=== PATIENT | female | born 1995 | race Caucasian/White ===

== ENCOUNTER → 2016-12-12 | Outpatient (CLI) | payer OTHER ==
[2016-12-12 16:31] LABS: CH 29.1; CHCM 34.2; HCT 41.1 % (34.0-46.0); HDW 2.29; HGB 13.7 gm/dL (11.4-16.0); MCH 28.4 pg (25.0-35.0); MCHC 33.2 g/dL (31.0-37.0); MCV 85.3 fL (80.0-100.0); Mean Platelet Volume 6.6; RBC 4.81 m/uL (3.80-5.40); RDW 12.7 % (11.5-15.5); WBC 13.4 k/uL (4.0-11.0)
[2016-12-12 16:46] LABS: Glucose 92 mg/dL (74-99); Non-African American GFR(MDRD) >60 (>60 ml/min/1.73 sqM)
[2016-12-12 17:16] LABS: Hepatitis B Surface Ag Index 0.08
[2016-12-13 06:48] LABS: HIV-1/HIV-2 Ab Screen NONREAC (NON REAC)
--- NOTE | 2016-12-13 08:45 | US ---
EXAMINATION TYPE: US OB <= 14 wk fetus, first trimester DATE OF EXAM: 12/12/2016 4:07 PM COMPARISON: NONE CLINICAL HISTORY: Confirm Dates and Viability. Positive beta-hCG test with pain EXAM PERFORMED: Transabdominal (TA) pelvic ultrasound EXAM MEASUREMENTS: GESTATIONAL AGE / DATING Physician Established: not established Dates by LMP: (14 weeks/4 days) EDC: 06/08/2017 Dates by First Scan: AUDITING CONTROL CLERK Dates by Current Scan for: (13 weeks/0 days) EDC: 06/19/2017 MATERNAL ANATOMY Uterus: 11.2 x 8.3 x 8.2cm Right Ovary: 2.6 x 1.7 x 2.3cm Left Ovary: 2.6 x 2.1 x 1.8cm Post CDS / Adnexa: wnl Presence of free fluid: no Presence of corpus luteal cyst: not seen Presence of subchorionic bleed: no GESTATION / SURVEY CRL: 6.6cm (13 weeks/0 days) MSD: wnl Yolk Sac (normal less than 6mm): not seen Heart Rate: 150 bpm Rhythm: Normal IUP: Viable IUP Date of LMP: 09/01/2016 Beta HcG (if available): not available TECHNOLOGIST IMPRESSION: Viable 13w0d IUP seen and appears wnl Single live intrauterine gestation is seen as gestational sac and pole are identified. Yolk sac is not clearly evident. heart tones are regular measure 150 bpm which is within normal limits. No free fluid is seen in pelvic cul-de-sac. Both ovaries are present. No suspicious solid or cystic extraovarian adnexal masses are seen. IMPRESSION: Single live intrauterine gestation is confirmed, mean crown-rump length is 6.6 cm corresponding to a 13 week 0 day old fetus.
== END | disposition home or self-care (01) ==
LOC: RADUSWWP 15:49
PROVIDERS: ATTEND Obstetrics & Gynecology
DX: Z36 Encounter for antenatal screening of mother (principal); O26.811 Pregnancy related exhaustion and fatigue, first trimester; Z3A.13 13 weeks gestation of pregnancy
CPT/HCPCS: 36415; 76801; 82565; 82947; 85027; 86762; 86780; 86850; 86900; 86901; 87340; 87389

== ENCOUNTER 2016-12-13 17:12 | Emergency (ER) | payer OTHER ==
[2016-12-13 17:40] VITALS: BP 129/77; PULSE 97; RESP 16; TEMP 98.7
[2016-12-13] MEDS ORDERED: SODIUM CHLORIDE 0.9% 1,000 ML IV STA (17:49)
[2016-12-13] MEDS ORDERED: .ACETAMINOPHEN IV (PEDS) 1,000 MG in EMPTY BAG 1 BAG IVPB STA (17:49)
--- NOTE | 2016-12-13 17:54 | ED ---
Abdominal Pain HPI - General Chief Complaint: Abdominal Pain Stated Complaint: Abdominal Pain, 12 weeks pgt Time Seen by Provider: 12/13/16 17:45 Source: patient, RN notes reviewed Mode of arrival: ambulatory Limitations: no limitations - History of Present Illness Initial Comments: 21-year-old female presents to emergency room chief complaint of abdominal pain in . Patient states she is about 13 weeks . Patient states she's had some epigastric abdominal pain with this. Patient states she has been to the ANSWERING SERVICE AGENT she has an ultrasound things went well. Patient states she is a . Patient states his pain just felt different so she thought that she should be seen. Patient denies any vaginal drainage or discharge. Patient denies any vaginal bleeding. Patient denies any nausea or vomiting with this. Patient denies any fever chills. Patient states she was concerned due to being in the belly pain so she thought that she should be seen. Patient denies any recent fever, chills, shortness of breath, chest pain, back pain, nausea vomiting, numbness or tingling, dysuria or hematuria, constipation or diarrhea, headaches or visual changes, or any other current symptoms. - Related Data Home Medications Medication Instructions Recorded Confirmed Pnv with Ca,No.72/Iron/FA 1 tab PO DAILY 11/04/16 12/13/16 [ Plus Tablet] Allergies Allergy/AdvReac Type Severity Reaction Status Date / Time No Known Allergies Allergy Verified 12/13/16 18:00 Review of Systems ROS Statement: Those systems with pertinent positive or pertinent negative responses have been documented in the HPI. ROS Other: All systems not noted in ROS Statement are negative. Past Medical History Past Medical History: No Reported History Additional Past Medical History / Comment(s): headaches History of Any Multi-Drug Resistant Organisms: None Reported Past Surgical History: No Surgical Hx Reported Past Psychological History: Depression Smoking Status: Never smoker Past Alcohol Use History: None Reported Past Drug Use History: None Reported General Exam - General Exam Comments Initial Comments: General: The patient is awake and alert, in no distress, and does not appear acutely ill. Eye: Pupils are equal, round. Ears, nose, mouth and throat: There are moist mucous membranes. Neck: The neck is supple, there is no tenderness. Cardiovascular: There is a regular rate and rhythm. No murmur, rub or gallop is appreciated. Respiratory: Lungs are clear to auscultation, respirations are non-labored, breath sounds are equal. No wheezes, stridor, rales, or rhonchi. Gastrointestinal: Soft, non-distended, non-tender abdomen without masses or organomegaly noted. There is no rebound or guarding present. No CVA tenderness. Bowel sounds are unremarkable. Back: There is no tenderness to palpation in the midline. There is no obvious deformity. No rashes noted. Musculoskeletal: Normal ROM, no tenderness, There is no pedal edema. There is no calf tenderness or swelling. Sensation intact. Pulses equal bilaterally 2+. Neurological: CN II-XII intact, There are no obvious motor or sensory deficits. Coordination appears grossly intact. Speech is normal. Skin: Skin is warm and dry and no rashes or lesions are noted. Psychiatric: Cooperative, appropriate mood & affect, normal judgment. Limitations: no limitations Course Vital Signs 12/13/16 17:37 Temperature 98.7 F Pulse Rate 97 Respiratory 16 Rate Blood Pressure 129/77 O2 Sat by Pulse 97 Oximetry Medical Decision Making - Medical Decision Making 21-year-old female presents emergency Department chief complaint abdominal pain and . At this time patient's laboratory is reviewed and negative patient's ultrasound was performed yesterday was reviewed and shows no acute process. We discussed the patient does not seem to have any acute problem for the pain discussed continuing watching him follow-up return parameters. Patient stated that she understood all questions have been answered. They will be discharged home. - Lab Data Result diagrams: 12/13/16 18:30 12/13/16 18:30 Lab Results 12/13/16 12/13/16 12/13/16 Range/Units 18:25 18:25 18:30 WBC 13.5 H (4.0-11.0) k/uL RBC 4.85 (3.80-5.40) m/uL Hgb 13.7 (11.4-16.0) gm/dL Hct 41.0 (34.0-46.0) % MCV 84.6 (80.0-100.0) fL MCH 28.1 (25.0-35.0) pg MCHC 33.3 (31.0-37.0) g/dL RDW 12.7 (11.5-15.5) % Plt Count 285 (150-450) k/uL Neutrophils % 66 % Lymphocytes % 26 % Monocytes % 6 % Eosinophils % 1 % Basophils % 0 % Neutrophils # 8.8 H (1.3-7.7) k/uL Lymphocytes # 3.4 (1.0-4.8) k/uL Monocytes # 0.8 (0-1.0) k/uL Eosinophils # 0.2 (0-0.7) k/uL Basophils # 0.1 (0-0.2) k/uL Sodium (137-145) mmol/L Potassium (3.5-5.1) mmol/L Chloride (98-107) mmol/L Carbon Dioxide (22-30) mmol/L Anion Gap mmol/L BUN (7-17) mg/dL Creatinine (0.52-1.04) mg/dL Est GFR (MDRD) Af Amer (>60 ml/min/1.73 sqM) Est GFR (MDRD) Non-Af (>60 ml/min/1.73 sqM) Glucose (74-99) mg/dL Calcium (8.4-10.2) mg/dL Total Bilirubin (0.2-1.3) mg/dL AST (14-36) U/L ALT (9-52) U/L Alkaline Phosphatase (38-126) U/L Total Protein (6.3-8.2) g/dL Albumin (3.5-5.0) g/dL Urine Color Yellow Urine Appearance Cloudy H (Clear) Urine pH 5.5 (5.0-8.0) Ur Specific [place] 1.019 (1.001-1.035) Urine Protein Negative (Negative) Urine Glucose (UA) Negative (Negative) Urine Ketones Negative (Negative) Urine Blood Negative (Negative) Urine Nitrate Negative (Negative) Urine Bilirubin Negative (Negative) Urine Urobilinogen 2.0 (<2.0) mg/dL Ur Leukocyte Esterase Large H (Negative) Urine RBC 13 H (0-5) /hpf Urine WBC 13 H (0-5) /hpf Ur Squamous Epith Cells 10 H (0-4) /hpf Urine Mucus Rare H (None) /hpf Urine HCG, Qual Detected (Not Detectd) 12/13/16 Range/Units 18:30 WBC (4.0-11.0) k/uL RBC (3.80-5.40) m/uL Hgb (11.4-16.0) gm/dL Hct (34.0-46.0) % MCV (80.0-100.0) fL MCH (25.0-35.0) pg MCHC (31.0-37.0) g/dL RDW (11.5-15.5) % Plt Count (150-450) k/uL Neutrophils % % Lymphocytes % % Monocytes % % Eosinophils % % Basophils % % Neutrophils # (1.3-7.7) k/uL Lymphocytes # (1.0-4.8) k/uL Monocytes # (0-1.0) k/uL Eosinophils # (0-0.7) k/uL Basophils # (0-0.2) k/uL Sodium 138 (137-145) mmol/L Potassium 4.4 (3.5-5.1) mmol/L Chloride 108 H (98-107) mmol/L Carbon Dioxide 17 L (22-30) mmol/L Anion Gap 13 mmol/L BUN 7 (7-17) mg/dL Creatinine 0.50 L (0.52-1.04) mg/dL Est GFR (MDRD) Af Amer >60 (>60 ml/min/1.73 sqM) Est GFR (MDRD) Non-Af >60 (>60 ml/min/1.73 sqM) Glucose 108 H (74-99) mg/dL Calcium 9.3 (8.4-10.2) mg/dL Total Bilirubin 0.6 (0.2-1.3) mg/dL AST 38 H (14-36) U/L ALT 38 (9-52) U/L Alkaline Phosphatase 62 (38-126) U/L Total Protein 6.6 (6.3-8.2) g/dL Albumin 3.8 (3.5-5.0) g/dL Urine Color Urine Appearance (Clear) Urine pH (5.0-8.0) Ur Specific [place] (1.001-1.035) Urine Protein (Negative) Urine Glucose (UA) (Negative) Urine Ketones (Negative) Urine Blood (Negative) Urine Nitrate (Negative) Urine Bilirubin (Negative) Urine Urobilinogen (<2.0) mg/dL Ur Leukocyte Esterase (Negative) Urine RBC (0-5) /hpf Urine WBC (0-5) /hpf Ur Squamous Epith Cells (0-4) /hpf Urine Mucus (None) /hpf Urine HCG, Qual (Not Detectd) Disposition Clinical Impression: Abdominal pain affecting Disposition: HOME SELF-CARE Condition: Stable Instructions: Abdominal Pain in (ED) Additional Instructions: Please use medication as discussed. Please follow up with family doctor if symptoms have not improved over the next two days. Please return to the emergency room if your symptoms increase or worsen or for any other concerns. Referrals: Victoriano Ramírez DO [Primary Care Provider] - 1-2 days Time of Disposition: 19:20
[2016-12-13 18:43] LABS: Basophils # (A) 0.1 k/uL (0-0.2); Basophils % (A) 0 %; CH 29.4; CHCM 34.9; Eosinophils # (A) 0.2 k/uL (0-0.7); Eosinophils % (A) 1 %; HDW 2.35; HGB 13.7 gm/dL (11.4-16.0); Luc # (Auto) 0.18; Luc % (Auto) 1; Lymphocytes # (A) 3.4 k/uL (1.0-4.8); Lymphocytes % (A) 26 %; MCH 28.1 pg (25.0-35.0); MCHC 33.3 g/dL (31.0-37.0); MCV 84.6 fL (80.0-100.0); Monocytes # (A) 0.8 k/uL (0-1.0); Monocytes % (A) 6 %; Neutrophils # (A) 8.8 k/uL (1.3-7.7); Neutrophils % (A) 66 %; RBC 4.85 m/uL (3.80-5.40); RDW 12.7 % (11.5-15.5); WBC 13.5 k/uL (4.0-11.0); WBC (Perox) 12.99
[2016-12-13 18:51] LABS: Appearance,Urine Cloudy (Clear); Bilirubin,Urine Negative (Negative); Glucose,Urine (UA) Negative (Negative); Ketones,Urine Negative (Negative); Leukocyte Esterase,Urine Large (Negative); Mucus,Urine Rare /hpf; Nitrite,Urine Negative (Negative); PH, Urine 5.5 (5.0-8.0); Particle Count 14804; Protein,Urine Negative (Negative); RBC,Urine 13 /hpf (0-5); Specific Gravity,Urine 1.019 (1.001-1.035); Squamous Epithelial Cell,Urine 10 /hpf (0-4); UA Billing (MACRO vs. MICRO) MICRO; WBC,Urine 13 /hpf (0-5)
[2016-12-13 18:54] LABS: ALT 38 U/L (9-52); AST 38 U/L (14-36); Alkaline Phosphatase 62 U/L (38-126); Anion Gap 13 mmol/L; Blood Urea Nitrogen 7 mg/dL (7-17); Calcium 9.3 mg/dL (8.4-10.2); Carbon Dioxide 17 mmol/L (22-30); Chloride 108 mmol/L (98-107); Glucose 108 mg/dL (74-99); Non-African American GFR(MDRD) >60 (>60 ml/min/1.73 sqM); Sodium 138 mmol/L (137-145); Total Bilirubin 0.6 mg/dL (0.2-1.3); Total Protein 6.6 g/dL (6.3-8.2)
[2016-12-13 19:13] LABS: Potassium 4.4 mmol/L (3.5-5.1)
[2016-12-13] MEDS ORDERED: ACETAMINOPHEN TAB 500 MG TAB PO STA (19:23)
== END 2016-12-13 19:37 | disposition home or self-care (01) ==
LOC: EC 17:12
DX: O26.891 Other specified pregnancy related conditions, first trimester (principal); R10.9 Unspecified abdominal pain; Z3A.13 13 weeks gestation of pregnancy
CPT/HCPCS: 36415; 80053; 81001; 81025; 85025; 87086; 99284

== ENCOUNTER → 2017-02-01 | Outpatient (CLI) | payer OTHER ==
--- NOTE | 2017-01-19 06:05 | US ---
EXAMINATION TYPE: US OB anatomy transabd second trimester DATE OF EXAM: 01/18/2017 4:32 PM COMPARISON: US on PACS first trimester December 12, 2016. HISTORY: LGA, G1 TECHNIQUE: Transabdominal (TA) EXAM MEASUREMENTS: GESTATIONAL AGE / DATING Physician Established: (18 weeks/2 days) EDC: 06/19/2017 Dates by LMP: (19 weeks/6 days) EDC: 06/08/2017 Dates by First Scan: (18 weeks/2 days) EDC: 06/19/2017 Dates by Current Scan for: (18 weeks/0 days) EDC: 06/21/2017 SURVEY IUP: Single PLACENTA: fundal anterior PREVIA: No previa DMITRY: 13.4 cm Normal CERVICAL LENGTH (transabdominal: norm > 3.0cm): 3.2 cm BIOMETRY PRESENTATION: Vertex LIE: Oblique BPD: 4.0 cm 18 weeks / 1 day HC: 15.0 cm 18 weeks / 1 day AC: 12.1 cm 17 weeks / 6 days FL: 2.7 cm 18 weeks / 1 day ESTIMATED WEIGHT IN GRAMS: 218.8 grams ESTIMATED WEIGHT IN LBS/OZ: 0 lbs. 8 oz. WEIGHT PERCENTAGE BASED ON ESTABLISHED DATE: 28.0 % HC/AC: 1.24 normal FL/AC: 22.03 normal HEART RATE: 157 bpm RHYTHM: Normal ANATOMY SEEN (within normal limits): * Lateral Vent (< 1 cm) 0.6 cm * Cisterna Magna (< 1.1 cm) 0.2 cm * Nuchal Fold (< 0.6 cm) 0.3 cm * Cerebellum (varies with age) 1.9 cm Choroid Plexus (bilateral) Midline Falx Cavus Septi Pellucidi Stomach Situs Diaphragm Kidneys (bilateral) Bladder Cord Insert Three Vessel Cord Arms (bilateral) Legs (bilateral) ANATOMY SEEN (does not appear within normal limits): ANATOMY NOT SEEN: due to lie Four Chamber Heart Outflow tracts: LVOT/RVOT Nose / Lips as < 20 weeks gestation for optimal scanning Longitudinal Spine Transverse Spine TECHNOLOGIST IMPRESSION: Single, live, IUP,18 weeks/0 days, EDC: 06/21/2017, HR 157bppm; patient is scheduled to return for OB Callback on 02/01/2017 at 3:40pm for remaining structures not well seen by US today. Single live intrauterine gestation is redemonstrated. Normal cephalad presentation to fetus is curren tly seen. There is no ultrasound evidence for placenta previa. Amniotic fluid index is within normal limits. biometry measurements are congruent and within normal limits. Detailed anatomical surve y shows no suspicious abnormality during real-time scanning but several structures as noted above are suboptimally seen. Still images saved show no suspicious abnormality. IMPRESSION: As above, suboptimal anatomical survey noted. Callback will be performed at later date.
--- NOTE | 2017-02-01 16:44 | US ---
EXAMINATION TYPE: US OB Call Back DATE OF EXAM: 02/01/2017 4:22 PM COMPARISON: US in PACS CLINICAL HISTORY: Large for Dates [id number]. GESTATIONAL AGE / DATING Dates by Initial Survey Scan: (20 weeks/0 days) EDC: 06/21/2017 HEART RATE: 147 bpm RHYTHM: Normal ANATOMY SEEN (second anatomic survey look): Four Chamber Heart: Outflow tracts:? LVOT/RVOT Nose / Lips: Transverse Spine: ANATOMY STILL NOT SEEN (requiring an additional callback appt): Longitudinal Spine: Fetus Spine Down Pt coming for 2nd call back on 02/16/17 at 1500 IMPRESSION: MORPHOLOGIC EXAMINATION IS STILL LIMITED. THE PATIENT WILL RETURN ONCE AGAIN.
== END | disposition home or self-care (01) ==
LOC: RADUSWWP 01-18 15:39
PROVIDERS: ATTEND Obstetrics & Gynecology
DX: O36.62X0 Maternal care for excessive fetal growth, second trimester, not applicable or unspecified (principal); Z3A.18 18 weeks gestation of pregnancy
CPT/HCPCS: 76811

== ENCOUNTER → 2017-02-16 | Outpatient (CLI) | payer OTHER ==
--- NOTE | 2017-02-16 15:17 | US ---
EXAMINATION TYPE: US OB Call Back DATE OF EXAM: 02/16/2017 3:05 PM COMPARISON: US in PACS CLINICAL HISTORY: OB CallBack. OB call back for spine images GESTATIONAL AGE / DATING Dates by Initial Survey Scan: (22 weeks/1 days) EDC: 06/21/2017 HEART RATE: 153 bpm RHYTHM: Normal ANATOMY SEEN (second anatomic survey look): Longitudinal Spine: wnl Transverse Spine: wnl Spine visualized and appeared wnl IMPRESSION: Visualized spine appears to be within normal limits.
== END | disposition home or self-care (01) ==
LOC: RADUSWWP 14:51
PROVIDERS: ATTEND Obstetrics & Gynecology
DX: Z03.74 Encounter for suspected problem with fetal growth ruled out (principal)

== ENCOUNTER → 2017-03-23 | Outpatient (CLI) | payer OTHER ==
[2017-03-23 10:29] LABS: CH 29.3; CHCM 33.9; HCT 37.5 % (34.0-46.0); HDW 2.74; HGB 12.7 gm/dL (11.4-16.0); MCH 29.5 pg (25.0-35.0); MCHC 33.9 g/dL (31.0-37.0); MCV 87.1 fL (80.0-100.0); Mean Platelet Volume 6.7; RBC 4.31 m/uL (3.80-5.40); RDW 12.9 % (11.5-15.5); WBC 13.9 k/uL (3.8-10.6)
== END ==
LOC: LABWHC1 08:55
PROVIDERS: ATTEND Obstetrics & Gynecology
DX: Z34.02 Encounter for supervision of normal first pregnancy, second trimester (principal); Z3A.00 Weeks of gestation of pregnancy not specified
CPT/HCPCS: 36415; 82950; 85027

== ENCOUNTER 2017-04-04 16:01 | Outpatient (CLI) | payer OTHER ==
[2017-04-04 16:55] VITALS: BP 119/75; PULSE 106; RESP 16; TEMP 96.4
== END 2017-04-04 16:52 | disposition home or self-care (01) ==
LOC: FBPOP 16:01
PROVIDERS: ATTEND Obstetrics & Gynecology
DX: O36.8130 Decreased fetal movements, third trimester, not applicable or unspecified (principal); Z3A.29 29 weeks gestation of pregnancy
CPT/HCPCS: 59025; G0463; 99213

== ENCOUNTER 2017-06-07 06:00 | Inpatient (IN) | payer OTHER ==
[2017-06-07] MEDS ORDERED: OXYTOCIN 10 UNIT/ML 1 ML VIAL IM PRN (06:10)
[2017-06-07] MEDS ORDERED: OXYTOCIN 20 UNITS/1000 ML NS 1,000 ML IV SCH ×2 (06:10→19:45)
[2017-06-07] MEDS ORDERED: CARBOPROST TROMETHAMINE 250 MCG/ML 1 ML AMP IM PRN (06:10)
[2017-06-07] MEDS ORDERED: METHYLERGONOVINE 0.2 MG/ML 1 ML AMP IM PRN (06:10)
[2017-06-07] MEDS ORDERED: LIDOCAINE 1% (PF) 10 MG/ML (30 ML SDV) SQ PRN (06:10)
[2017-06-07] MEDS ORDERED: TERBUTALINE 1 MG/ML VIAL SQ PRN (06:10)
[2017-06-07 06:24] LABS: Basophils # (A) 0.1 k/uL (0-0.2); Basophils % (A) 0 %; CH 27.9; CHCM 33.5; Eosinophils # (A) 0.1 k/uL (0-0.7); Eosinophils % (A) 1 %; HCT 36.5 % (34.0-46.0); HDW 2.84; Luc # (Auto) 0.37; Luc % (Auto) 2; Lymphocytes # (A) 3.9 k/uL (1.0-4.8); Lymphocytes % (A) 25 %; MCH 27.5 pg (25.0-35.0); MCHC 32.8 g/dL (31.0-37.0); MCV 83.9 fL (80.0-100.0); Mean Platelet Volume 7.3; Monocytes # (A) 0.9 k/uL (0-1.0); Monocytes % (A) 5 %; Neutrophils # (A) 10.3 k/uL (1.3-7.7); Neutrophils % (A) 66 %; RBC 4.35 m/uL (3.80-5.40); WBC 15.6 k/uL (3.8-10.6); WBC (Perox) 16.05
[2017-06-07 06:28] VITALS: BMI 34.7
[2017-06-07] MEDS: LACTATED RINGERS 1,000 ML IV SCH ×2 (06:32→18:14)
--- NOTE | 2017-06-07 07:28 | P.HPOB ---
History of Present Illness H&P Date: 06/07/17 Chief Complaint: Induction of labor 22 year old presents at 39 weeks 1 day for induction of labor. Her cervix is 1-2/70/-2 and she is not arelis. heart tones are 135-140 with moderate variability and reactive. Review of Systems All systems: negative Constitutional: Denies chills, Denies fever Eyes: denies blurred vision, denies pain Ears, nose, mouth and throat: Denies headache, Denies sore throat Cardiovascular: Denies chest pain, Denies shortness of breath Respiratory: Denies cough Gastrointestinal: Denies abdominal pain, Denies diarrhea, Denies nausea, Denies vomiting Genitourinary: Denies dysuria, Denies hematuria Musculoskeletal: Denies myalgias Integumentary: Denies pruritus, Denies rash Neurological: Denies numbness, Denies weakness Psychiatric: Denies anxiety, Denies depression Endocrine: Denies fatigue, Denies weight change Past Medical History Past Medical History: No Reported History Additional Past Medical History / Comment(s): headaches. Obstetric history: This is her first and she has had care with me since 12 weeks gestation. A+, abs neg, Rub Imm, Treponemal neg, HIV NR, Hep B neg. nromal 1hr GTT, GBS neg. History of Any Multi-Drug Resistant Organisms: None Reported Past Surgical History: No Surgical Hx Reported Past Anesthesia/Blood Transfusion Reactions: No Reported Reaction Past Psychological History: Depression Smoking Status: Never smoker Past Alcohol Use History: None Reported Past Drug Use History: None Reported - Past Family History Mother Family Medical History: No Reported History Medications and Allergies Home Medications Medication Instructions Recorded Confirmed Type Pnv,Calcium 72/Iron/Folic Acid 1 tab PO DAILY 11/04/16 06/07/17 History [ Plus Tablet] Allergies Allergy/AdvReac Type Severity Reaction Status Date / Time No Known Allergies Allergy Verified 06/07/17 06:09 Exam Osteopathic Statement: *. No significant issues noted on an osteopathic structural exam other than those noted in the History and Physical/Consult. - Vital Signs Vital signs: Vital Signs Temp Pulse Resp BP 06/07/17 06:15 98.2 F 109 H 16 143/77 Intake and Output 06/06/17 06/07/17 06/07/17 22:59 06:59 14:59 Other: Weight 103.419 kg Heart: Regular rate and rhythm Lungs: Clear to auscultation bilaterally Abdomen: Soft, nontender Extremities: Negative Homans sign Results Result Diagrams: 06/07/17 06:15 Abnormal Lab Results - Last 24 Hours (Table) 06/07/17 Range/Units 06:15 WBC 15.6 H (3.8-10.6) k/uL Neutrophils # 10.3 H (1.3-7.7) k/uL Assessment and Plan (1) Normal labor Status: Acute Plan: 1. Admit to family place 2. Amniotomy and Pitocin for induction of labor 3. Anticipate normal vaginal delivery
[2017-06-07] MEDS ORDERED: BENZOCAINE/MENTHOL SPRAY 1 GM/SPRAY AEROSOL TOPICAL PRN (19:32)
[2017-06-07] MEDS ORDERED: HYDROCORTISONE 2.5% RECTAL CREAM 30 GM TUBE RECTAL PRN (19:32)
[2017-06-07] MEDS ORDERED: diphenhydrAMINE 50 MG CAP PO PRN (19:32)
[2017-06-07] MEDS ORDERED: Acetaminophen-Codeine 300-30mg TAB PO PRN ×2 (19:32)
[2017-06-07] MEDS ORDERED: ACETAMINOPHEN TAB 325 MG TAB PO PRN (19:32)
[2017-06-07] MEDS ORDERED: diphenhydrAMINE 25 MG CAP PO PRN (19:32)
[2017-06-07] MEDS ORDERED: diphenhydrAMINE 50 MG/ML 1 ML VIAL IVP PRN ×2 (19:32)
[2017-06-07] MEDS ORDERED: SIMETHICONE 80 MG CHEWABLE PO PRN (19:32)
[2017-06-07] MEDS ORDERED: WITCH HAZEL 1 EACH MED..PAD TOPICAL PRN (19:32)
[2017-06-07] MEDS ORDERED: LANOLIN CREAM 5 GM TUBE TOPICAL PRN (19:32)
[2017-06-07] MEDS ORDERED: ZOLPIDEM 5 MG TAB PO PRN (19:32)
--- NOTE | 2017-06-07 19:36 | P.PROBDLV ---
Vaginal Delivery Note - . Vaginal Delivery Note: 22-year-old presented at 39 weeks and 1 day for induction of labor. Her cervix was 1-2 cm dilated, 70% effaced, -2 station. She was not arelis. heart tones 135-140 with moderate variability and reactive. Pitocin was started and amniotomy was performed at 7:09 AM, clear fluid noted. Patient progressed to 5 cm and did get an epidural around 1 PM. She progressed about 8 cm and got an uncontrollable urge to push. She pushed through and did become complete. She delivered a viable female over midline episiotomy under epidural anesthesia at 1908. Head delivered OA, nuchal cord 1 easily reduced, anterior shoulder which was the left shoulder delivered gentle downward traction followed by posterior shoulder and rest of body. Nose and mouth bulb suctioned, cord clamped and cut, infant placed on mother's abdomen. Apgars 8, 8 , weight 6 pounds. Placenta delivered spontaneously, intact with three-vessel cord at 1911. Vagina, cervix, and perineum were inspected. Second-degree midline episiotomy was repaired with 2-0, and 3-0 Vicryl. Estimated blood loss 150 mL. Mother and baby in stable condition.
[2017-06-07] MEDS: IBUPROFEN 600 MG TAB PO PRN (19:49)
[2017-06-07] MEDS: SENNOSIDES-DOCUSATE SODIUM 1 EACH TAB PO SCH (19:50)
--- NOTE | 2017-06-08 07:04 | P.DS ---
Providers Date of admission: 06/07/17 06:00 Expected date of discharge: 06/08/17 Attending physician: Eleanor Barr Primary care physician: Victoriano Ramírez - Discharge Diagnosis(es) (1) Normal labor Current Visit: Yes Status: Resolved (2) Normal vaginal delivery Current Visit: Yes Status: Acute Hospital Course: PAtient presented for induction of labor. She underwent a normal vaginal delivery and had an uncomplicated post course. She will be discharged home PPD #1 in stable condition to follow up with me in 6 weeks. Plan - Discharge Summary New Discharge Prescriptions: New Ibuprofen [Motrin] 600 mg PO Q6HR PRN #30 tab PRN Reason: Mild Pain Or Fever >= 100.5 No Action Pnv,Calcium 72/Iron/Folic Acid [ Plus Tablet] 1 tab PO DAILY Discharge Medication List Pnv,Calcium 72/Iron/Folic Acid [ Plus Tablet] 1 tab PO DAILY 11/04/16 [ History] Ibuprofen [Motrin] 600 mg PO Q6HR PRN #30 tab 06/08/17 [Rx] Follow up Appointment(s)/Referral(s): Eleanor Barr DO [Doctor of Osteopathic Medicine] - 6 Weeks Discharge Disposition: HOME SELF-CARE
[2017-06-08] MEDS: IBUPROFEN 600 MG TAB PO PRN ×3 (07:30→21:48)
[2017-06-08] MEDS: SENNOSIDES-DOCUSATE SODIUM 1 EACH TAB PO SCH ×2 (07:30→21:49)
[2017-06-08] MEDS: LACTATED RINGERS 1,000 ML IV SCH (20:31)
[2017-06-09 00:18] VITALS: RESP 16
[2017-06-09] MEDS: SENNOSIDES-DOCUSATE SODIUM 1 EACH TAB PO SCH (07:27)
[2017-06-09 07:58] VITALS: BP 121/71; PULSE 89; TEMP 98.1
== END 2017-06-09 10:30 | disposition home or self-care (01) | DRG 775 ==
LOC: 4FBP 06:00
PROVIDERS: ADMIT Obstetrics & Gynecology; ATTEND Obstetrics & Gynecology
PROC: 10E0XZZ Delivery of Products of Conception, External Approach (ICD-10-PCS; principal; 2017-06-07)
PROC: 0W8NXZZ Division of Female Perineum, External Approach (ICD-10-PCS; principal; 2017-06-07)
PROC: 3E0R3CZ (ICD-10-PCS; principal; 2017-06-07)
PROC: 00HU33Z Insertion of Infusion Device into Spinal Canal, Percutaneous Approach (ICD-10-PCS; principal; 2017-06-07)
PROC: 3E033VJ Introduction of Other Hormone into Peripheral Vein, Percutaneous Approach (ICD-10-PCS; principal; 2017-06-07)
PROC: 10907ZC Drainage of Amniotic Fluid, Therapeutic from Products of Conception, Via Natural or Artificial Opening (ICD-10-PCS; principal; 2017-06-07)
DX: O69.81X0 Labor and delivery complicated by cord around neck, without compression, not applicable or unspecified (principal); Z37.0 Single live birth; Z3A.39 39 weeks gestation of pregnancy
CPT/HCPCS: 85025; 88307

== ENCOUNTER 2017-07-22 19:20 | Emergency (ER) | payer OTHER ==
--- NOTE | 2017-07-22 20:23 | ED ---
General Adult HPI - General Chief complaint: Skin/Abscess/Foreign Body Stated complaint: abscess on inner thigh Time Seen by Provider: 07/22/17 20:14 Source: patient, RN notes reviewed Mode of arrival: ambulatory Limitations: no limitations - History of Present Illness Initial comments: 22-year-old female presents with a one-week history of sore on her medial left inner thigh. Patient noted today that the sore turned black on the surface. Pain is present when patient ambulates, rubbing the surface of the lesion. It was having some minimal clear drainage. No fever or chills. Patient's nondiabetic. No steroids. She has no history of abscess in this location. She is not an IV drug user. - Related Data Home Medications Medication Instructions Recorded Confirmed No Known Home Medications [No 07/22/17 07/22/17 Known Home Medications] Allergies Allergy/AdvReac Type Severity Reaction Status Date / Time No Known Allergies Allergy Verified 07/22/17 20:15 Review of Systems ROS Statement: Those systems with pertinent positive or pertinent negative responses have been documented in the HPI. ROS Other: All systems not noted in ROS Statement are negative. Past Medical History Past Medical History: No Reported History Additional Past Medical History / Comment(s): headaches. Obstetric history: This is her first and she has had care with me since 12 weeks gestation. A+, abs neg, Rub Imm, Treponemal neg, HIV NR, Hep B neg. nromal 1hr GTT, GBS neg. History of Any Multi-Drug Resistant Organisms: None Reported Past Surgical History: No Surgical Hx Reported Past Anesthesia/Blood Transfusion Reactions: No Reported Reaction Past Psychological History: Depression Smoking Status: Never smoker Past Alcohol Use History: None Reported Past Drug Use History: None Reported - Past Family History Mother Family Medical History: No Reported History General Exam Limitations: no limitations General appearance: alert, in no apparent distress Head exam: Present: atraumatic, normocephalic Eye exam: Present: normal appearance, PERRL ENT exam: Present: normal exam Neck exam: Present: normal inspection, full ROM. Absent: meningismus Respiratory exam: Absent: respiratory distress Cardiovascular Exam: Present: regular rate GI/Abdominal exam: Absent: soft, distended, tenderness Extremities exam: Present: other (2 cm abrasion on the inner thigh, there is minimal erythema, tach surface is tender from patient's jeans. No fluctuance, no induration, no drainage) Neurological exam: Present: alert, oriented X3 Psychiatric exam: Present: normal affect, normal mood Skin exam: Present: warm, abrasion (Left inner thigh) Course Vital Signs 07/22/17 19:30 Temperature 97.9 F Pulse Rate 89 Respiratory 16 Rate Blood Pressure 127/78 O2 Sat by Pulse 99 Oximetry Medical Decision Making - Medical Decision Making 22-year-old female presenting with 1 week history of abrasion on her inner thigh. This is at the surface where her thighs rub together with ambulation. Patient had minimal clear drainage, patient noted that there was a black tinge to this lesion today. On examination there does appear to be addendum adherent to the abrasion. This is visible on close inspection. No induration, no significant erythema, no fluctuance. No signs of abscess. Patient is afebrile well-appearing. She is given bacitracin ointment and dressing. She will follow -up as needed. Disposition Clinical Impression: Abrasion Disposition: HOME SELF-CARE Condition: Good Instructions: Abrasion (ED) Referrals: Victoriano Ramírez DO [Primary Care Provider] - 1-2 days Time of Disposition: 20:23
[2017-07-22 20:28] VITALS: BP 129/69; PULSE 78; RESP 18; TEMP 97
== END 2017-07-22 20:28 | disposition home or self-care (01) ==
LOC: EC 19:20
DX: S70.312A Abrasion, left thigh, initial encounter (principal)
CPT/HCPCS: 99282

== ENCOUNTER 2017-07-26 19:34 | Emergency (ER) | payer OTHER ==
[2017-07-26 20:17] VITALS: PULSE 66; RESP 20; TEMP 98.2
[2017-07-26 20:18] VITALS: BP 131/77
--- NOTE | 2017-07-26 20:41 | ED ---
Skin/Abscess/FB HPI - General Chief complaint: Skin/Abscess/Foreign Body Stated complaint: Wound Care Time Seen by Provider: 07/26/17 20:22 Source: patient, RN notes reviewed Mode of arrival: ambulatory Limitations: no limitations - History of Present Illness Initial comments: 22-year-old female presents emergency Department chief complaint of skin rash infection. Patient states she seen a few days ago for some redness states it got worse. Patient states she is strongly redness and some drainage. Patient denies any fever or chills. She states it is diffuse and symmetric patient in no prior skin infections including MRSA VRE. Patient denies any other than her legs. Patient states that she has changed her razor several times. Patient states that she has been keeping them clean with soap and water. - Related Data Previous Rx's Medication Instructions Recorded Mupirocin 2% Oint [Bactroban 2% 1 applic TOPICAL TID #22 gm 07/26/17 Oint] Sulfamethox-Tmp 800-160Mg [Bactrim 1 each PO Q12HR #20 tab 07/26/17 Ds] Allergies Allergy/AdvReac Type Severity Reaction Status Date / Time No Known Allergies Allergy Verified 07/26/17 20:17 Review of Systems ROS Statement: Those systems with pertinent positive or pertinent negative responses have been documented in the HPI. ROS Other: All systems not noted in ROS Statement are negative. Past Medical History Past Medical History: No Reported History Additional Past Medical History / Comment(s): headaches. Obstetric history: This is her first and she has had care with me since 12 weeks gestation. A+, abs neg, Rub Imm, Treponemal neg, HIV NR, Hep B neg. nromal 1hr GTT, GBS neg. History of Any Multi-Drug Resistant Organisms: None Reported Past Surgical History: No Surgical Hx Reported Past Anesthesia/Blood Transfusion Reactions: No Reported Reaction Past Psychological History: Depression Smoking Status: Never smoker Past Alcohol Use History: None Reported Past Drug Use History: None Reported - Past Family History Mother Family Medical History: No Reported History General Exam Limitations: no limitations General appearance: alert, in no apparent distress Head exam: Present: atraumatic, normocephalic, normal inspection Respiratory exam: Present: normal lung sounds bilaterally. Absent: respiratory distress, wheezes, rales, rhonchi, stridor Cardiovascular Exam: Present: regular rate, normal rhythm, normal heart sounds. Absent: systolic murmur, diastolic murmur, rubs, gallop, clicks Skin exam: Present: warm, dry, rash (Erythematous sore on the left calf, right and left thigh region there is mild surrounding erythema) Course Vital Signs 07/26/17 07/26/17 20:15 20:16 Temperature 98.2 F Pulse Rate 66 Respiratory 20 Rate Blood Pressure 131/77 O2 Sat by Pulse 99 Oximetry Medical Decision Making - Medical Decision Making 22-year-old female presented for open sores and rash. Patient appears to have some cellulitis to the open wound. I we'll place patient on Bactroban and Bactrim. Patient will follow with PCP and 48 hours return parameters were discussed. Disposition Clinical Impression: Open leg wound, Cellulitis Disposition: HOME SELF-CARE Condition: Stable Instructions: Cellulitis (ED) Additional Instructions: Please return to the Emergency Department if symptoms worsen or any other concerns. Prescriptions: Mupirocin 2% Oint [Bactroban 2% Oint] 1 applic TOPICAL TID #22 gm Sulfamethox-Tmp 800-160Mg [Bactrim Ds] 1 each PO Q12HR #20 tab Referrals: Victoriano Ramírez DO [Primary Care Provider] - 1-2 days Time of Disposition: 20:41
--- NOTE | 2017-07-31 00:38 | CDI ---
Dear Arian Herron MD: Please do addendum site specificity of cellulitis. Thank you, Danya Wang, Hand Sander. If you have any questions, please contact [employer] Worker at [phone]. [facility]
== END 2017-07-26 20:49 | disposition home or self-care (01) ==
LOC: EC 19:34
DX: L03.115 Cellulitis of right lower limb (principal); L03.116 Cellulitis of left lower limb; S71.101S Unspecified open wound, right thigh, sequela; S81.802S Unspecified open wound, left lower leg, sequela; S71.102S Unspecified open wound, left thigh, sequela; X58.XXXS Exposure to other specified factors, sequela
CPT/HCPCS: 99282

== ENCOUNTER 2017-12-28 00:32 | Emergency (ER) | payer OTHER ==
[2017-12-28 00:40] VITALS: BP 145/71; PULSE 100; RESP 18; TEMP 97.2
[2017-12-28] MEDS ORDERED: predniSONE 50 MG TAB PO STA (01:08)
--- NOTE | 2017-12-28 01:09 | ED ---
Skin/Abscess/FB HPI - General Chief complaint: Skin/Abscess/Foreign Body Stated complaint: Rash Time Seen by Provider: 12/28/17 01:02 Source: patient Mode of arrival: ambulatory Limitations: no limitations - History of Present Illness Initial comments: 22-year-old female patient presents to the emergency department today for complaints of rash to her bilateral forearms and neck. Patient states that it started this morning with spots in her head. States that the rash is itchy. States that she did just restart Wellbutrin after being off for a few months. States that she did take this in the past for approximately one month and had no problems. Patient states she is been sick with upper respiratory symptoms for the last week. States that she is starting to feel better. She denies any exposure to other new substances such as soaps, detergents, foods, or other medications. She states she did take Benadryl prior to coming in which did improve her symptoms. She denies any throat swelling, difficulty swallowing, shortness of breath, or wheezing. Denies any history of similar symptoms. Patient denies any recent fever, chills, shortness breath, chest pain, abdominal pain, nausea, vomiting, diarrhea, constipation, back pain, numbness, tingling, dizziness, weakness, hematuria, dysuria, urinary urgency, urinary frequency, headache, visual changes, or any other complaints. - Related Data Previous Rx's Medication Instructions Recorded Mupirocin 2% Oint [Bactroban 2% 1 applic TOPICAL TID #22 gm 07/26/17 Oint] Ibuprofen [Motrin] 600 mg PO Q6HR PRN #20 tab 09/08/17 Orphenadrine [Norflex] 100 mg PO Q12H #10 tablet.er 09/08/17 predniSONE 50 mg PO DAILY #4 tablet 12/28/17 Allergies Allergy/AdvReac Type Severity Reaction Status Date / Time No Known Allergies Allergy Verified 12/28/17 00:40 Review of Systems ROS Statement: Those systems with pertinent positive or pertinent negative responses have been documented in the HPI. ROS Other: All systems not noted in ROS Statement are negative. Past Medical History Past Medical History: No Reported History Additional Past Medical History / Comment(s): headaches. Obstetric history: This is her first and she has had care with me since 12 weeks gestation. A+, abs neg, Rub Imm, Treponemal neg, HIV NR, Hep B neg. nromal 1hr GTT, GBS neg. History of Any Multi-Drug Resistant Organisms: MRSA Date of last positivie culture/infection: 07/07/2017 MDRO Source:: leg Past Surgical History: No Surgical Hx Reported Past Anesthesia/Blood Transfusion Reactions: No Reported Reaction Past Psychological History: Depression Smoking Status: Never smoker Past Alcohol Use History: None Reported Past Drug Use History: None Reported - Past Family History Mother Family Medical History: No Reported History General Exam Limitations: no limitations General appearance: alert, in no apparent distress, other (Physical well- developed, well-nourished adult female patient in no acute distress. Vital signs upon presentation are temperature 97.2F, pulse 100, respirations 18, blood pressure 145/71, pulse ox 100% on room air.) Eye exam: Present: normal appearance, PERRL, EOMI. Absent: scleral icterus, conjunctival injection, periorbital swelling ENT exam: Present: normal exam, normal oropharynx, mucous membranes moist Respiratory exam: Present: normal lung sounds bilaterally. Absent: respiratory distress, wheezes, rales, rhonchi, stridor Cardiovascular Exam: Present: regular rate, normal rhythm, normal heart sounds. Absent: systolic murmur, diastolic murmur, rubs, gallop, clicks Neurological exam: Present: alert, oriented X3, CN II-XII intact Psychiatric exam: Present: normal affect, normal mood Skin exam: Present: warm, dry, intact, normal color, rash Expanded Type of lesion: Present: rash Distribution of rash: RUE (Bilateral forearms, near the wrist), other ( Posterior neck) Description of rash: Present: urticarial Course Vital Signs 12/28/17 00:36 Temperature 97.2 F L Pulse Rate 100 Respiratory 18 Rate Blood Pressure 145/71 O2 Sat by Pulse 100 Oximetry Medical Decision Making - Medical Decision Making 22-year-old female patient presents to the emergency department today for complaints of rash. Rash is itchy and urticarial. Patient is breathing without difficulty. Symptoms did improve with Benadryl. She'll be discharged home with a prescription for prednisone. She was given 50 mg start here in the emergency department. There is no known cause for this symptoms, I did discuss possibility of ALLERGIC reaction versus viral reaction. She is instructed to follow up with her primary care physician for recheck in 1-2 days which is instructed to return here immediately for any new, worsening, or concerning symptoms per to verbalizes understanding and agrees with this plan. Disposition Clinical Impression: Urticaria Disposition: HOME SELF-CARE Condition: Good Instructions: Urticaria (ED) Additional Instructions: Take medications as directed. Continue taking Benadryl every 6 hours as needed. Follow-up with her primary care physician for recheck in 1-2 days. Return here immediately for any new, worsening, or concerning symptoms. Prescriptions: predniSONE 50 mg PO DAILY #4 tablet Referrals: Victoriano Ramírez DO [Primary Care Provider] - 1-2 days Time of Disposition: 01:09
== END 2017-12-28 01:20 | disposition home or self-care (01) ==
LOC: EC 00:32
DX: L50.9 Urticaria, unspecified (principal); Z86.14 Personal history of Methicillin resistant Staphylococcus aureus infection
CPT/HCPCS: 99282; J7512

== ENCOUNTER 2017-12-31 13:01 | Emergency (ER) | payer OTHER ==
[2017-12-31 13:22] VITALS: BP 144/84; PULSE 111; RESP 18; TEMP 99.4
--- NOTE | 2017-12-31 13:47 | ED ---
General Adult HPI - General Chief complaint: Skin/Abscess/Foreign Body Stated complaint: hives Time Seen by Provider: 12/31/17 13:25 Source: patient, RN notes reviewed, old records reviewed Mode of arrival: ambulatory Limitations: no limitations - History of Present Illness Initial comments: Patient 22-year-old female who presents emergency room today with a chief complaint of ALLERGIC reaction. She does admit that she was seen in the emergency room for this recurrent in the week. Also went to make sure [facility] was given another dose of prednisone there. She states she's been taking the medication and the hives have improved but she still very itchy. She states she feels very itchy to the back of her neck, her arms in her inner thighs. Patient is unsure if it's related to Wellbutrin that she began taking again a few weeks ago. She states she has since stopped it. She does plan to follow-up the family doctor this coming week. She states that itching is the worst part of the symptoms currently. Denies any difficulty swallowing or breathing. She is taking one tablet Benadryl every 6 hours along with Pepcid and prednisone taper. Patient denies any recent fever, chills, shortness of breath, chest pain, back pain, abdominal pain, nausea or vomiting, headaches or visual changes, or any other complaints. - Related Data Previous Rx's Medication Instructions Recorded Mupirocin 2% Oint [Bactroban 2% 1 applic TOPICAL TID #22 gm 07/26/17 Oint] Ibuprofen [Motrin] 600 mg PO Q6HR PRN #20 tab 09/08/17 Orphenadrine [Norflex] 100 mg PO Q12H #10 tablet.er 09/08/17 predniSONE 50 mg PO DAILY #4 tablet 12/28/17 hydrOXYzine PAMOATE [Vistaril] 1 - 2 tab PO Q6H #30 capsule 12/31/17 Allergies Allergy/AdvReac Type Severity Reaction Status Date / Time No Known Allergies Allergy Verified 12/31/17 13:22 Review of Systems ROS Statement: Those systems with pertinent positive or pertinent negative responses have been documented in the HPI. ROS Other: All systems not noted in ROS Statement are negative. Past Medical History Past Medical History: No Reported History Additional Past Medical History / Comment(s): headaches. Obstetric history: This is her first and she has had care with me since 12 weeks gestation. A+, abs neg, Rub Imm, Treponemal neg, HIV NR, Hep B neg. nromal 1hr GTT, GBS neg. History of Any Multi-Drug Resistant Organisms: MRSA Date of last positivie culture/infection: 07/07/2017 MDRO Source:: leg Past Surgical History: No Surgical Hx Reported Past Anesthesia/Blood Transfusion Reactions: No Reported Reaction Past Psychological History: Depression Smoking Status: Never smoker Past Alcohol Use History: None Reported Past Drug Use History: None Reported - Past Family History Mother Family Medical History: No Reported History General Exam - General Exam Comments Initial Comments: General: The patient is awake and alert, in no distress, and does not appear acutely ill. Eye: Pupils are equal, round and reactive to light, extra-ocular movements are intact. No nystagmus. There is normal conjunctiva bilaterally. No signs of icterus. Ears, nose, mouth and throat: There are moist mucous membranes and no oral lesions. Neck: The neck is supple, there is no tenderness or JVD. Cardiovascular: There is a regular rate and rhythm. No murmur, rub or gallop is appreciated. Respiratory: Lungs are clear to auscultation, respirations are non-labored, breath sounds are equal. No wheezes, stridor, rales, or rhonchi. Musculoskeletal: Normal ROM, no tenderness. Strength 5/5. Sensation intact. Pulses equal bilaterally 2+. Neurological: A&O x 3. CN II-XII intact, There are no obvious motor or sensory deficits. Coordination appears grossly intact. Speech is normal. Skin: No hives on exam. Patient does have some redness and excoriation of the back of her neck and her forearms bilaterally. Psychiatric: Cooperative, appropriate mood & affect, normal judgment. Limitations: no limitations Course Vital Signs 12/31/17 13:20 Temperature 99.4 F Pulse Rate 111 H Respiratory 18 Rate Blood Pressure 144/84 O2 Sat by Pulse 95 Oximetry Medical Decision Making - Medical Decision Making Patient will be given Vistaril to use instead of Benadryl to see if this helps improve her symptoms. She is advised continue with other medications of Pepcid and prednisone. Disposition Clinical Impression: Allergic reaction Disposition: HOME SELF-CARE Condition: Good Instructions: General Allergic Reaction (ED) Additional Instructions: Please use medication as discussed. Please follow-up with family doctor in the next 2 days of symptoms have not improved. Please return to emergency room if the symptoms increase or worsen or for any other concerns. Prescriptions: hydrOXYzine PAMOATE [Vistaril] 1 - 2 tab PO Q6H #30 capsule Referrals: Victoriano Ramírez DO [Primary Care Provider] - 1-2 days Time of Disposition: 13:43
== END 2017-12-31 13:52 | disposition home or self-care (01) ==
LOC: EC 13:01
DX: T78.40XA Allergy, unspecified, initial encounter (principal); Z86.14 Personal history of Methicillin resistant Staphylococcus aureus infection
CPT/HCPCS: 99283

== ENCOUNTER → 2018-04-17 | Outpatient (CLI) | payer OTHER ==
--- NOTE | 2018-04-17 09:33 | US ---
EXAMINATION TYPE: Transabdominal DATE OF EXAM: 02/06/18 COMPARISON: NONE CLINICAL HISTORY: Z36 Confrim dates. Confirm Dates EXAM PERFORMED: Transabdominal (TA) EXAM MEASUREMENTS: GESTATIONAL AGE / DATING Physician Established: (10 weeks/0 days) EDC: 11/13/2018 Dates by LMP: (10 weeks/0 days) EDC: 11/13/2018 Dates by First Scan: No prior Dates by Current Scan for: (9 weeks/3 days) EDC: 11/17/2018 MATERNAL ANATOMY Uterus: 8.3 x 5.4 x 6.0 cm Right Ovary: 3.8 x 3.2 x 3.4 cm Left Ovary: 3.3 x 2.4 x 2.3 cm Post CDS / Adnexa: wnl Presence of free fluid: No Presence of corpus luteal cyst: Right Ovary= 2.5 x 2.6 x 2.4 cm Presence of subchorionic bleed: No GESTATION / SURVEY CRL: 2.7 cm (9 weeks/3 days) MSD: wnl Heart Rate: 174 bpm Rhythm: Normal IUP: Viable IUP Date of LMP: 02/06/2018 Single, viable IUP/ No abnormality visualized at this time IMPRESSION: Single viable intrauterine of 19 weeks 3 days with an EDC of 11/17/2018 and heart rate of 17 4 bpm.
== END | disposition home or self-care (01) ==
LOC: RADUSWWP 09:04
PROVIDERS: ATTEND Obstetrics & Gynecology
DX: Z36.89 Encounter for other specified antenatal screening (principal)
CPT/HCPCS: 76801

== ENCOUNTER → 2018-07-10 | Outpatient (CLI) | payer OTHER ==
--- NOTE | 2018-07-10 14:25 | US ---
EXAMINATION TYPE: US OB anatomy transabd DATE OF EXAM: 07/10/2018 COMPARISON: US 04/17/2018 HISTORY: O36.62X0 LARGE FOR DATES Difficult exam due to patient body habitus. TECHNIQUE: Transabdominal (TA) EXAM MEASUREMENTS: GESTATIONAL AGE / DATING Physician Established: (22 weeks/0 days) EDC: 11/13/2018 Dates by LMP: (22 weeks/0 days) EDC: 11/13/2018 Dates by First Scan: (21weeks/3 days) EDC: 11/17/2018 Dates by Current Scan for: (20 weeks/6 days) EDC: 11/21/2018 SURVEY IUP: Single PLACENTA: Posterior PREVIA: Low Lying DMITRY: 12.0 cm Normal CERVICAL LENGTH (transabdominal: norm > 3.0cm): 4.2 cm BIOMETRY PRESENTATION: Vertex LIE: Longitudinal BPD: 5.07 cm 21 weeks / 3 days HC: 19.53 cm 21 weeks / 5 days AC: 15.21 cm 20 weeks / 3 days FL: 3.41 cm 20 weeks / 5 days ESTIMATED WEIGHT IN GRAMS: 371.26 grams ESTIMATED WEIGHT IN LBS/OZ: 0 lbs. 13 oz. WEIGHT PERCENTAGE BASED ON ESTABLISHED DATE: 4 % HC/AC: 1.28 Slighty high FL/AC: 22.41 HEART RATE: 154 bpm RHYTHM: Normal ANATOMY SEEN (within normal limits): * Lateral Vent (< 1 cm) 0.8 cm * Cisterna Magna (< 1.1 cm) 0.4 cm * Nuchal Fold (< 0.6 cm) 0.4 cm * Cerebellum (varies with age) 1.9 cm Choroid Plexus (bilateral) Midline Falx Cavus Septi Pellucidi Four Chamber Heart Outflow tracts: LVOT/RVOT Stomach Situs Diaphragm Kidneys (bilateral) Bladder Cord Insert Three Vessel Cord Longitudinal Spine Transverse Spine Arms (bilateral) Legs (bilateral) ANATOMY NOT SEEN: Nose/lips due to position MATERNAL WALL MEASUREMENT: 3.5 cm from skin to anterior uterine wall (if exam limited due to body arvizu bitus). Viable IUP with an LOLA of 11/21/2018 by this exam. Probable placental varghese visualized within placenta measuring 1.3 x 1.0 x 1.3 cm. The head circumference to abdominal circumference ratio is slightly elevated at 1.28. Normal up to 1. 25. Remaining ratios appear within normal limits. Estimated weight places the gestation within the 4th percentile, which is low. IMPRESSION: 1. Single intrauterine gestation estimated at 20 weeks 6 days gestation based on current ultrasound m easurements. This would've a calculated EDC of 11/21/2018. Correlate this with her physician establish ed EDC. 2. Nose and lips are not identified on this exam due to positioning. 3. Placental varghese measures 1.3 cm. 4. Cardiac activity measures 154 bpm.
== END | disposition home or self-care (01) ==
LOC: RADUSWWP 10:20
PROVIDERS: ATTEND Obstetrics & Gynecology
DX: O36.62X0 Maternal care for excessive fetal growth, second trimester, not applicable or unspecified (principal); Z3A.20 20 weeks gestation of pregnancy
CPT/HCPCS: 76811

== ENCOUNTER 2018-07-30 09:17 | Emergency (ER) | payer OTHER ==
[2018-07-30 09:21] VITALS: RESP 18
[2018-07-30] MEDS ORDERED: SODIUM CHLORIDE 0.9% 1,000 ML IV ONE (09:33)
--- NOTE | 2018-07-30 09:58 | ED ---
SOB HPI - General Chief Complaint: Shortness of Breath Stated Complaint: Sob /25 wks Time Seen by Provider: 07/30/18 09:23 Source: patient, RN notes reviewed Mode of arrival: wheelchair Limitations: no limitations - History of Present Illness Initial Comments: This is a 23-year-old female presents emergency Department chief complaint of shortness of breath. Patient states that she had sudden onset of shortness of breath earlier this morning. Patient states that hurts to take a deep breath and feels hard to get a full breath in. Patient states that she has no prior lung disease denies any previous DVTs or PEs. Patient that she is 25 weeks [address] Barr. Patient also complains that she' s felt some abdominal cramping and some lower back cramping. She has no dysuria no hematuria denies any vaginal bleeding or vaginal discharge. - Related Data Home Medications Medication Instructions Recorded Confirmed Pedi Multivit No.25/Folic Acid 2 tab PO DAILY 07/30/18 07/30/18 [Flintstones Multivit Chew Tab] Allergies Allergy/AdvReac Type Severity Reaction Status Date / Time No Known Allergies Allergy Verified 07/30/18 09:37 Review of Systems ROS Statement: Those systems with pertinent positive or pertinent negative responses have been documented in the HPI. ROS Other: All systems not noted in ROS Statement are negative. Past Medical History Past Medical History: No Reported History Additional Past Medical History / Comment(s): headaches. Obstetric history: This is her first and she has had care with me since 12 weeks gestation. A+, abs neg, Rub Imm, Treponemal neg, HIV NR, Hep B neg. nromal 1hr GTT, GBS neg. History of Any Multi-Drug Resistant Organisms: MRSA Date of last positivie culture/infection: 07/07/2017 MDRO Source:: leg Past Surgical History: No Surgical Hx Reported Past Anesthesia/Blood Transfusion Reactions: No Reported Reaction Past Psychological History: Depression Smoking Status: Never smoker Past Alcohol Use History: None Reported Past Drug Use History: None Reported - Past Family History Mother Family Medical History: No Reported History General Exam Limitations: no limitations General appearance: alert, in no apparent distress Head exam: Present: atraumatic, normocephalic, normal inspection Eye exam: Present: normal appearance, PERRL, EOMI. Absent: scleral icterus, conjunctival injection, periorbital swelling Neck exam: Present: normal inspection. Absent: tenderness, meningismus, lymphadenopathy Respiratory exam: Present: normal lung sounds bilaterally. Absent: respiratory distress, wheezes, rales, rhonchi, stridor Cardiovascular Exam: Present: normal rhythm, tachycardia, normal heart sounds. Absent: systolic murmur, diastolic murmur, rubs, gallop, clicks GI/Abdominal exam: Present: soft, normal bowel sounds. Absent: distended, tenderness, guarding, rebound, rigid Back exam: Absent: CVA tenderness (R), CVA tenderness (L) Skin exam: Present: warm, dry, intact, normal color. Absent: rash Course Vital Signs 07/30/18 09:18 Temperature 98.7 F Pulse Rate 107 H Respiratory 18 Rate Blood Pressure 129/82 O2 Sat by Pulse 98 Oximetry - Reevaluation(s) Reevaluation #1: 07/30/18 11:54 Patient updated on results and reevaluated. Patient states symptoms have improved. Medical Decision Making - Medical Decision Making 23-year-old female presents emergency Department chief complaint of shortness of breath abdominal cramping. Patient lab work and EKG chest x-rays unremarkable. D-dimer is negative this time is felt not to be related to a PE. Patient states that symptoms have improved while in the emergency Department. She did have some underlying recent increase in acid reflux may be causing some of her symptoms. She did advised to take over the counter Tums or approved and antacids by [employer]. Patient will be sent to mother-baby for an ST and moderate secondary to abdominal cramping. - Lab Data Result diagrams: 07/30/18 10:02 07/30/18 10:02 Lab Results 07/30/18 07/30/18 07/30/18 Range/Units 10:02 10:02 10:02 WBC 11.5 H (3.8-10.6) k/uL RBC 4.44 (3.80-5.40) m/uL Hgb 12.2 (11.4-16.0) gm/dL Hct 36.1 (34.0-46.0) % MCV 81.3 (80.0-100.0) fL MCH 27.4 (25.0-35.0) pg MCHC 33.7 (31.0-37.0) g/dL RDW 13.7 (11.5-15.5) % Plt Count 298 (150-450) k/uL Neutrophils % 68 % Lymphocytes % 24 % Monocytes % 5 % Eosinophils % 1 % Basophils % 0 % Neutrophils # 7.7 (1.3-7.7) k/uL Lymphocytes # 2.8 (1.0-4.8) k/uL Monocytes # 0.6 (0-1.0) k/uL Eosinophils # 0.1 (0-0.7) k/uL Basophils # 0.0 (0-0.2) k/uL PT (9.0-12.0) sec INR (<1.2) APTT (22.0-30.0) sec D-Dimer (<0.60) mg/L FEU Sodium 135 L (137-145) mmol/L Potassium 4.1 (3.5-5.1) mmol/L Chloride 107 (98-107) mmol/L Carbon Dioxide 21 L (22-30) mmol/L Anion Gap 7 mmol/L BUN 6 L (7-17) mg/dL Creatinine 0.37 L (0.52-1.04) mg/dL Est GFR (CKD-EPI)AfAm >90 (>60 ml/min/1.73 sqM) Est GFR (CKD-EPI)NonAf >90 (>60 ml/min/1.73 sqM) Glucose 92 (74-99) mg/dL Calcium 8.9 (8.4-10.2) mg/dL Magnesium 1.8 (1.6-2.3) mg/dL Total Bilirubin 0.4 (0.2-1.3) mg/dL AST 18 (14-36) U/L ALT 17 (9-52) U/L Alkaline Phosphatase 100 (38-126) U/L Total Creatine Kinase 59 (30-135) U/L CK-MB (CK-2) 1.0 (0.0-2.4) ng/mL CK-MB (CK-2) Rel Index 1.7 Troponin I 0.013 (0.000-0.034) ng/mL Total Protein 6.3 (6.3-8.2) g/dL Albumin 3.4 L (3.5-5.0) g/dL Urine Color Urine Appearance (Clear) Urine pH (5.0-8.0) Ur Specific Starlight (1.001-1.035) Urine Protein (Negative) Urine Glucose (UA) (Negative) Urine Ketones (Negative) Urine Blood (Negative) Urine Nitrite (Negative) Urine Bilirubin (Negative) Urine Urobilinogen (<2.0) mg/dL Ur Leukocyte Esterase (Negative) 07/30/18 07/30/18 Range/Units 10:02 11:00 WBC (3.8-10.6) k/uL RBC (3.80-5.40) m/uL Hgb (11.4-16.0) gm/dL Hct (34.0-46.0) % MCV (80.0-100.0) fL MCH (25.0-35.0) pg MCHC (31.0-37.0) g/dL RDW (11.5-15.5) % Plt Count (150-450) k/uL Neutrophils % % Lymphocytes % % Monocytes % % Eosinophils % % Basophils % % Neutrophils # (1.3-7.7) k/uL Lymphocytes # (1.0-4.8) k/uL Monocytes # (0-1.0) k/uL Eosinophils # (0-0.7) k/uL Basophils # (0-0.2) k/uL PT 9.6 (9.0-12.0) sec INR 1.0 (<1.2) APTT 23.3 (22.0-30.0) sec D-Dimer 0.58 (<0.60) mg/L FEU Sodium (137-145) mmol/L Potassium (3.5-5.1) mmol/L Chloride (98-107) mmol/L Carbon Dioxide (22-30) mmol/L Anion Gap mmol/L BUN (7-17) mg/dL Creatinine (0.52-1.04) mg/dL Est GFR (CKD-EPI)AfAm (>60 ml/min/1.73 sqM) Est GFR (CKD-EPI)NonAf (>60 ml/min/1.73 sqM) Glucose (74-99) mg/dL Calcium (8.4-10.2) mg/dL Magnesium (1.6-2.3) mg/dL Total Bilirubin (0.2-1.3) mg/dL AST (14-36) U/L ALT (9-52) U/L Alkaline Phosphatase (38-126) U/L Total Creatine Kinase (30-135) U/L CK-MB (CK-2) (0.0-2.4) ng/mL CK-MB (CK-2) Rel Index Troponin I (0.000-0.034) ng/mL Total Protein (6.3-8.2) g/dL Albumin (3.5-5.0) g/dL Urine Color Colorless Urine Appearance Clear (Clear) Urine pH 6.5 (5.0-8.0) Ur Specific Starlight 1.003 (1.001-1.035) Urine Protein Negative (Negative) Urine Glucose (UA) Negative (Negative) Urine Ketones Negative (Negative) Urine Blood Negative (Negative) Urine Nitrite Negative (Negative) Urine Bilirubin Negative (Negative) Urine Urobilinogen <2.0 (<2.0) mg/dL Ur Leukocyte Esterase Negative (Negative) Disposition Clinical Impression: GERD (gastroesophageal reflux disease), Costochondritis, Abdominal cramping affecting Disposition: HOME SELF-CARE Condition: Stable Instructions: Dyspnea (ED) Additional Instructions: Please return to the Emergency Department if symptoms worsen or any other concerns. Is patient prescribed a controlled substance at d/c from ED?: No Referrals: Victoriano Ramírez DO [Primary Care Provider] - 1-2 days Time of Disposition: 11:55
[2018-07-30 10:18] LABS: Basophils % (A) 0 %; Eosinophils # (A) 0.1 k/uL (0-0.7); Eosinophils % (A) 1 %; HCT 36.1 % (34.0-46.0); HGB 12.2 gm/dL (11.4-16.0); Lymphocytes # (A) 2.8 k/uL (1.0-4.8); Lymphocytes % (A) 24 %; MCH 27.4 pg (25.0-35.0); MCHC 33.7 g/dL (31.0-37.0); MCV 81.3 fL (80.0-100.0); Mean Platelet Volume 6.6; Monocytes # (A) 0.6 k/uL (0-1.0); Monocytes % (A) 5 %; Neutrophils # (A) 7.7 k/uL (1.3-7.7); Neutrophils % (A) 68 %; Platelet Count 298 k/uL (150-450); RBC 4.44 m/uL (3.80-5.40); RDW 13.7 % (11.5-15.5); WBC 11.5 k/uL (3.8-10.6)
[2018-07-30 10:27] LABS: ALT 17 U/L (9-52); AST 18 U/L (14-36); Albumin 3.4 g/dL (3.5-5.0); Alkaline Phosphatase 100 U/L (38-126); Anion Gap 7 mmol/L; Blood Urea Nitrogen 6 mg/dL (7-17); Calcium 8.9 mg/dL (8.4-10.2); Carbon Dioxide 21 mmol/L (22-30); Chloride 107 mmol/L (98-107); Glucose 92 mg/dL (74-99); Magnesium 1.8 mg/dL (1.6-2.3); Potassium 4.1 mmol/L (3.5-5.1); Sodium 135 mmol/L (137-145); Total Bilirubin 0.4 mg/dL (0.2-1.3); Total Protein 6.3 g/dL (6.3-8.2)
[2018-07-30 10:29] LABS: D-Dimer 0.58 mg/L FEU (<0.60); Partial Thromboplastin Time 23.3 sec (22.0-30.0); Prothrombin Time 9.6 sec (9.0-12.0)
--- NOTE | 2018-07-30 10:37 | XR ---
EXAMINATION TYPE: XR chest 2V DATE OF EXAM: 07/30/2018 COMPARISON: NONE HISTORY: Shortness of breath currently 25 weeks TECHNIQUE: Frontal and lateral views of the chest are obtained. FINDINGS: There is no focal air space opacity, pleural effusion, or pneumothorax seen. The cardiac silhouette size is within normal limits. The osseous structures are intact. IMPRESSION: No acute cardiopulmonary process.
[2018-07-30 10:48] LABS: Troponin I 0.013 ng/mL (0.000-0.034)
[2018-07-30 11:23] LABS: Appearance,Urine Clear (Clear); Bilirubin,Urine Negative (Negative); Blood,Urine Negative (Negative); Color,Urine Colorless; Glucose,Urine (UA) Negative (Negative); Ketones,Urine Negative (Negative); Leukocyte Esterase,Urine Negative (Negative); Nitrite,Urine Negative (Negative); PH, Urine 6.5 (5.0-8.0); Protein,Urine Negative (Negative); Specific Gravity,Urine 1.003 (1.001-1.035); Urobilinogen,Urine <2.0 mg/dL (<2.0)
[2018-07-30 12:05] VITALS: BP 124/67; PULSE 84; TEMP 98.2
== END 2018-07-30 12:04 | disposition home or self-care (01) ==
LOC: EC 09:17
DX: O99.612 Diseases of the digestive system complicating pregnancy, second trimester (principal); K21.9 Gastro-esophageal reflux disease without esophagitis; O99.89 Other specified diseases and conditions complicating pregnancy, childbirth and the puerperium; M94.0 Chondrocostal junction syndrome [Tietze]; R10.30 Lower abdominal pain, unspecified; Z86.14 Personal history of Methicillin resistant Staphylococcus aureus infection; Z3A.25 25 weeks gestation of pregnancy
CPT/HCPCS: 99285 ×2; 96360 ×2; 96361 ×2; 36415; 93005; 85379; 80053; 82550; 82553; 83735; 84484; 85025; 85610; 85730; 81003; 71046; G0463; 99213

== ENCOUNTER 2018-07-30 12:13 | Outpatient (CLI) | payer OTHER ==
[2018-07-30 14:48] VITALS: BP 122/63; PULSE 68; RESP 16; TEMP 98.1
--- NOTE | 2018-07-30 19:45 | P.MSEPDOC ---
Presenting Problems - Arrival Data Date of Arrival on Unit: 07/30/18 Time of Arrival on Unit: 12:15 Mode of Transport: Wheelchair - Complaint OB-Reason for Admission/Chief Complaint: Other Comment: from er with sob. evaluated and cleared. now to us for cramping evaluation. Medical History - Information : 2 Para: 1 Term: 1 : 0 Abortions: Spontaneous or Elective: 0 Number of Living Children: 0 - Gestational Age Gestational Age by LOLA (wks/days): 24 Weeks and 6 Days Review of Systems - Review of Systems Constitutional: No problems Breast: No problems ENT: No problems Cardiovascular: No problems Respiratory: No problems Gastrointestinal: No problems Genitourinary: No problems Musculoskeletal: No problems Neurological: No problems Skin: No problems Comment: sat. 99-100%. denies sob at this time. "work made me come to er" Vital Signs - Temperature Temperature: 98.1 F Temperature Source: Tympanic - Pulse Right Apical Pulse Rate: 68 Pulse Assessment Method: Automatic Cuff - Respirations Respiratory Rate: 16 Oxygen Delivery Method: Room Air O2 Sat by Pulse Oximetry: 100 - Blood Pressure Right Arm Blood Pressure: 122/63 Blood Pressure Mean: 82 Blood Pressure Source: Automatic Cuff Medical Screen Scoring (Pre) - Cervical Exam Dilation: Exam Deferred Effacement: Exam Deferred - Uterine Contractions Frequency: N/A Duration: N/A Intensity: N/A - Maternal Vital Signs Maternal Temperature: N/A Maternal Blood Pressure: N/A Signs of Preeclampsia: N/A Maternal Respirations: N/A - Pain Assessment Pain Location and Character: Lower, Abdomen Pain Scale Used: Numeric (1 - 10) Pain Intensity: 3 Pain Description: Cramping Pain Frequency: Intermittent Pain Duration: 2 Pain Duration Units: Days Pain Behavior: Vocalization - Maternal Trauma Maternal Trauma: N/A - Assessment Heart Rate - NICHD Category: Category I (Normal) = 0 Position: N/A Station: N/A - Total Score Total Score (Pre): 0 - Level of Risk Level of Risk: Low (0-5) Physician Notification (Pre) - Physician Notified Physician Notified Date: 07/30/18 Physician Notified Time: 12:45 Physician/Practitioner Notifed:: felix Spoke With: felix New Order Received: Yes (may discharge home with instructions) - Notification Comment Comment: home to rest. appt scheduled for appt with dr washington Disposition - Disposition OB Disposition: Discharge to home Discharge Date: 07/30/18 Discharge Time: 13:10 I agree with the RN Medical Screening Exam: Yes Risk & Benefit of care provided described in d/c instruction: Yes Diagnosis: FALSE LABOR BEFORE 37 COMPLETED WEEKS OF GEST, SECOND TRI
== END 2018-07-30 13:10 | disposition home or self-care (01) ==
LOC: FBPOP 12:13
PROVIDERS: ATTEND Obstetrics & Gynecology
DX: O47.02 False labor before 37 completed weeks of gestation, second trimester (principal); Z3A.24 24 weeks gestation of pregnancy
CPT/HCPCS: 99213

== ENCOUNTER 2018-08-15 19:00 | Outpatient (CLI) | payer OTHER ==
[2018-08-15 21:06] VITALS: BP 123/64; PULSE 86; RESP 16; TEMP 96.8
--- NOTE | 2018-08-19 10:31 | P.MSEPDOC ---
Presenting Problems - Arrival Data Date of Arrival on Unit: 08/15/18 Time of Arrival on Unit: 19:00 Mode of Transport: Ambulatory - Complaint OB-Reason for Admission/Chief Complaint: Decreased Movement, Pain Comment: Pt c/o of pain around umbilicus. Pt states it is tender upon standing and to the touch. Medical History - Information : 2 Para: 1 Term: 1 : 0 Abortions: Spontaneous or Elective: 0 Number of Living Children: 1 - Gestational Age Gestational Age by LOLA (wks/days): 27 Weeks and 1 Days Review of Systems - Review of Systems Constitutional: No problems Breast: No problems ENT: No problems Cardiovascular: No problems Respiratory: No problems Gastrointestinal: No problems Genitourinary: No problems Musculoskeletal: No problems Neurological: No problems Skin: No problems Vital Signs - Temperature Temperature: 96.8 F Temperature Source: Temporal Artery Scan - Pulse Right Brachial Pulse Rate: 86 Pulse Assessment Method: Automatic Cuff - Respirations Respiratory Rate: 16 Oxygen Delivery Method: Room Air O2 Sat by Pulse Oximetry: 99 - Blood Pressure Right Arm Blood Pressure: 123/64 Blood Pressure Mean: 83 Blood Pressure Source: Automatic Cuff Medical Screen Scoring (Pre) - Cervical Exam Dilation: Exam Deferred Effacement: Exam Deferred Membranes: Intact - Uterine Contractions Frequency: N/A Duration: N/A Intensity: N/A - Maternal Vital Signs Maternal Temperature: N/A Maternal Blood Pressure: N/A Signs of Preeclampsia: N/A Maternal Respirations: N/A - Pain Assessment Pain Location and Character: Abdomen Pain Scale Used: Numeric (1 - 10) Pain Intensity: 6 Pain Description: *Acute, Pulling, Sore Pain Frequency: Intermittent Pain Duration Units: Minutes Pain Behavior: None Exhibited Pain Aggravating Factors: Activity - Maternal Trauma Maternal Trauma: N/A - Assessment Baseline FHR: 140 Heart Rate - NICHD Category: Category I (Normal) = 0 NST: Reactive Position: N/A Station: N/A - Total Score Total Score (Pre): 0 - Level of Risk Level of Risk: Low (0-5) Physician Notification (Pre) - Physician Notified Physician Notified Date: 08/15/18 Physician Notified Time: 20:30 Physician/Practitioner Notifed:: Dr. Persaud Spoke With: Dr. Persaud New Order Received: Yes - Notification Comment Comment: Dr. Persaud notified that pt's pain has subsided. Orders recieved to d/ c pt to home. Disposition - Disposition OB Disposition: Discharge to home Discharge Date: 08/15/18 Discharge Time: 20:40 I agree with the RN Medical Screening Exam: Yes Risk & Benefit of care provided described in d/c instruction: Yes Diagnosis: UNSPECIFIED ABDOMINAL PAIN
== END 2018-08-15 20:40 | disposition home or self-care (01) ==
LOC: FBPOP 19:00
PROVIDERS: ATTEND Obstetrics & Gynecology
DX: O99.89 Other specified diseases and conditions complicating pregnancy, childbirth and the puerperium (principal); R10.9 Unspecified abdominal pain; Z3A.27 27 weeks gestation of pregnancy
CPT/HCPCS: 99213

== ENCOUNTER → 2018-08-24 | Outpatient (CLI) | payer OTHER ==
--- NOTE | 2018-08-24 11:32 | US ---
EXAMINATION TYPE: US OB anatomy transabd DATE OF EXAM: 08/24/2018 COMPARISON: NONE HISTORY: o44.42 Low line Placenta Low lying placenta TECHNIQUE: Transabdominal (TA) EXAM MEASUREMENTS: GESTATIONAL AGE / DATING Physician Established: (28 weeks/3 days) EDC: 11/13/18 Dates by LMP: (28 weeks/3 days) EDC: 11/13/18 Dates by First Scan: (27 weeks/6 days) EDC: 11/17/18 Dates by Current Scan for: (28 weeks/3 days) EDC: 11/13/18 SURVEY IUP: Single PLACENTA: Posterior PREVIA: No previa DMITRY: 11.5 cm Normal CERVICAL LENGTH (transabdominal: norm > 3.0cm): 3.3 cm BIOMETRY PRESENTATION: Vertex LIE: Longitudinal BPD: 7.0 cm 28 weeks / 1 days HC: 26.2 cm 28 weeks / 4 days AC: 23.9 cm 28 weeks / 2 days FL: 5.3 cm 28 weeks / 2 days ESTIMATED WEIGHT IN GRAMS: 1191 grams ESTIMATED WEIGHT IN LBS/OZ: 2 lbs. 10 oz. WEIGHT PERCENTAGE BASED ON ESTABLISHED DATE: 29 % HC/AC: 1.10 Normal FL/AC: 22% Normal HEART RATE: 125 bpm RHYTHM: Normal ANATOMY SEEN (within normal limits): Four Chamber Heart Stomach Situs Nose / Lips Diaphragm Kidneys (bilateral) Bladder Cord Insert Three Vessel Cord Arms (bilateral) Legs (bilateral) ANATOMY NOT SEEN: due to position * Lateral Vent (< 1 cm) * Cisterna Magna (< 1.1 cm) * Nuchal Fold (< 0.6 cm) * Cerebellum (varies with age) Choroid Plexus (bilateral) Longitudinal Spine Transverse Spine Outflow tracts: LVOT/RVOT Midline Falx Cavus Septi Pellucidi MATERNAL WALL MEASUREMENT: 3.8 cm from skin to anterior uterine wall (if exam limited due to body arvizu bitus). IMPRESSION: Single viable IUP 28wks/3days with LOLA of 11/13/18. Placental varghese noted
== END | disposition home or self-care (01) ==
LOC: RADUSWWP 07:04
PROVIDERS: ATTEND Obstetrics & Gynecology
DX: O44.42 Low lying placenta NOS or without hemorrhage, second trimester (principal); Z3A.28 28 weeks gestation of pregnancy
CPT/HCPCS: 76811

== ENCOUNTER 2018-10-22 23:15 | Outpatient (CLI) | payer OTHER ==
[2018-10-23 02:19] VITALS: BP 134/77; PULSE 96; RESP 16; TEMP 97.1
--- NOTE | 2018-11-01 07:45 | P.MSEPDOC ---
Presenting Problems - Arrival Data Date of Arrival on Unit: 10/22/18 Time of Arrival on Unit: 23:15 Mode of Transport: Wheelchair - Complaint OB-Reason for Admission/Chief Complaint: Possible Onset of Labor Medical History - Information : 2 Para: 1 Term: 1 : 0 Abortions: Spontaneous or Elective: 0 Number of Living Children: 1 - Gestational Age Gestational Age by LOLA (wks/days): 36 Weeks and 6 Days Review of Systems - Review of Systems Constitutional: No problems Breast: No problems ENT: No problems Cardiovascular: No problems Respiratory: No problems Gastrointestinal: No problems Genitourinary: No problems Musculoskeletal: No problems Neurological: No problems Skin: No problems Vital Signs - Temperature Temperature: 97.1 F Temperature Source: Temporal Artery Scan - Pulse Right Brachial Pulse Rate: 96 Pulse Assessment Method: Automatic Cuff - Respirations Respiratory Rate: 16 Oxygen Delivery Method: Room Air O2 Sat by Pulse Oximetry: 98 - Blood Pressure Right Arm Blood Pressure: 134/77 Blood Pressure Mean: 96 Blood Pressure Source: Automatic Cuff Medical Screen Scoring (Pre) - Cervical Exam Dilation: 1-3 cm = 1 Membranes: Intact - Uterine Contractions Frequency: > 5 minutes apart = 1 Duration: N/A - Maternal Vital Signs Maternal Temperature: N/A Maternal Blood Pressure: N/A Signs of Preeclampsia: N/A Maternal Respirations: N/A - Pain Assessment Pain Location and Character: Lower, Abdomen Pain Scale Used: Numeric (1 - 10) Pain Intensity: 4 Pain Description: *Acute, Cramping Pain Frequency: Intermittent Pain Duration Units: Minutes Pain Behavior: None Exhibited Pain Aggravating Factors: Contractions - Total Score Total Score (Pre): 2 - Level of Risk Level of Risk: Low (0-5) Physician Notification (Pre) - Physician Notified Physician Notified Date: 10/22/18 Physician Notified Time: 23:47 Physician/Practitioner Notifed:: Dr. Persaud Spoke With: Dr. Persaud New Order Received: Yes - Notification Comment Comment: Dr. Persaud called and given report on pt in tr. Pt c/o. VS wnl. Negative amnisure. vag exam of 1.5/70/-3. Reactive nst. Orders recieved to recheck pt after 1hr from int exam, if no change d/c pt to home. Disposition - Disposition OB Disposition: Discharge to home Discharge Date: 10/23/18 Discharge Time: 00:30 I agree with the RN Medical Screening Exam: Yes Risk & Benefit of care provided described in d/c instruction: Yes Diagnosis: FALSE LABOR BEFORE 37 COMPLETED WEEKS OF GEST, THIRD TRI
== END 2018-10-23 00:31 | disposition home or self-care (01) ==
LOC: FBPOP 23:15
PROVIDERS: ATTEND Obstetrics & Gynecology
DX: O47.03 False labor before 37 completed weeks of gestation, third trimester (principal); Z3A.36 36 weeks gestation of pregnancy
CPT/HCPCS: 59025; 84112; G0463; 99213

== ENCOUNTER 2018-10-28 09:44 | Outpatient (CLI) | payer OTHER ==
[2018-10-28 10:07] VITALS: BP 135/74; PULSE 89; RESP 16; TEMP 95.8
--- NOTE | 2018-11-19 17:45 | P.MSEPDOC ---
Presenting Problems - Arrival Data Date of Arrival on Unit: 10/28/18 Time of Arrival on Unit: 09:44 Mode of Transport: Wheelchair - Complaint OB-Reason for Admission/Chief Complaint: Possible Onset of Labor Medical History - Information : 2 Para: 1 - Gestational Age Gestational Age by LOLA (wks/days): 37 Weeks and 5 Days Review of Systems - Review of Systems Constitutional: No problems Breast: No problems ENT: No problems Cardiovascular: No problems Respiratory: No problems Gastrointestinal: No problems Genitourinary: No problems Musculoskeletal: No problems Neurological: No problems Skin: No problems Vital Signs - Temperature Temperature: 95.8 F Temperature Source: Temporal Artery Scan - Pulse Right Sitting Brachial Pulse Rate: 89 Pulse Assessment Method: Automatic Cuff - Respirations Respiratory Rate: 16 Oxygen Delivery Method: Room Air O2 Sat by Pulse Oximetry: 99 - Blood Pressure Right Arm Sitting Blood Pressure: 135/74 Blood Pressure Mean: 94 Blood Pressure Source: Automatic Cuff Medical Screen Scoring (Pre) - Cervical Exam Dilation: 1-3 cm = 1 Effacement: Exam Deferred Membranes: Intact - Uterine Contractions Frequency: > or = 36 weeks =2 Duration: > 40 seconds = 2 Intensity: N/A - Maternal Vital Signs Maternal Temperature: N/A Maternal Blood Pressure: N/A Signs of Preeclampsia: N/A Maternal Respirations: N/A - Pain Assessment Pain Location and Character: Lower, Back, Abdomen Pain Scale Used: Numeric (1 - 10) Pain Intensity: 8 Pain Management Goal: 2 Pain Description: Cramping Pain Radiation Location: 0 Pain Frequency: Intermittent Pain Duration: 3.5 Pain Duration Units: Hours Pain Behavior: Facial Grimacing, Vocalization Effects of Pain: 0 Pain Aggravating Factors: None - Maternal Trauma Maternal Trauma: N/A - Assessment Heart Rate - NICHD Category: Category I (Normal) = 0 NST: Reactive Position: N/A Station: N/A - Total Score Total Score (Pre): 5 - Level of Risk Level of Risk: Low (0-5) Physician Notification (Pre) - Physician Notified Physician Notified Date: 10/28/18 Physician Notified Time: 10:23 Physician/Practitioner Notifed:: Dr Barr Spoke With: Dr Barr New Order Received: Yes - Notification Comment Comment: discharge pt if no cervix change after 1 hour Disposition - Disposition OB Disposition: Discharge to home Discharge Date: 10/28/18 Discharge Time: 11:11 I agree with the RN Medical Screening Exam: Yes Risk & Benefit of care provided described in d/c instruction: Yes Diagnosis: FALSE LABOR AT OR AFTER 37 COMPLETED WEEKS OF GESTATION
== END 2018-10-28 11:10 | disposition home or self-care (01) ==
LOC: FBPOP 09:44
PROVIDERS: ATTEND Obstetrics & Gynecology
DX: O47.1 False labor at or after 37 completed weeks of gestation (principal); Z3A.37 37 weeks gestation of pregnancy
CPT/HCPCS: 59025; G0463; 99213

== ENCOUNTER 2018-11-12 06:07 | Inpatient (IN) | payer OTHER ==
[2018-11-12] MEDS ORDERED: METHYLERGONOVINE 0.2 MG/ML 1 ML AMP IM PRN (06:17)
[2018-11-12] MEDS ORDERED: LIDOCAINE 0.5% (PF) 5 MG/ML (50 ML SDV) SQ PRN (06:17)
[2018-11-12] MEDS ORDERED: TERBUTALINE 1 MG/ML VIAL SQ PRN (06:17)
[2018-11-12] MEDS ORDERED: CARBOPROST TROMETHAMINE 250 MCG/ML 1 ML AMP IM PRN (06:17)
[2018-11-12] MEDS ORDERED: OXYTOCIN 10 UNIT/ML 1 ML VIAL IM PRN (06:17)
[2018-11-12 06:21] VITALS: BMI 36.5
[2018-11-12] MEDS: LACTATED RINGERS 1,000 ML IV SCH ×3 (06:26→16:22)
[2018-11-12] MEDS ORDERED: OXYTOCIN 20 UNITS/1000 ML NS 1,000 ML IV SCH ×2 (06:30→17:45)
[2018-11-12 08:18] LABS: Basophils % (A) 0 %; Eosinophils # (A) 0.1 k/uL (0-0.7); Eosinophils % (A) 1 %; HCT 35.4 % (34.0-46.0); HGB 11.2 gm/dL (11.4-16.0); Hypochromasia Slight; Lymphocytes # (A) 2.7 k/uL (1.0-4.8); Lymphocytes % (A) 26 %; MCH 24.3 pg (25.0-35.0); MCHC 31.8 g/dL (31.0-37.0); MCV 76.5 fL (80.0-100.0); Mean Platelet Volume 6.7; Microcytosis Slight; Monocytes # (A) 0.6 k/uL (0-1.0); Monocytes % (A) 6 %; Neutrophils # (A) 6.5 k/uL (1.3-7.7); Neutrophils % (A) 63 %; Platelet Count 341 k/uL (150-450); RBC 4.63 m/uL (3.80-5.40); RDW 14.9 % (11.5-15.5); WBC 10.3 k/uL (3.8-10.6)
[2018-11-12] MEDS ORDERED: SODIUM CHLORIDE 0.9% 100 ML BAG ONE (14:12)
[2018-11-12] MEDS ORDERED: ROPIVACAINE 5MG/ML 20ML VIAL ONE (14:12)
[2018-11-12] MEDS ORDERED: fentaNYL (PF) 50 MCG/ML 5 ML AMP ONE (14:12)
--- NOTE | 2018-11-12 17:09 | P.HPOB ---
History of Present Illness H&P Date: 11/12/18 Chief Complaint: Induction of Labor 23-year-old presents at 39 weeks and 6 days for induction of labor. Her cervix is 3 cm dilated, 70% effaced, and -2 station. She is arelis irregularly. heart tones 135-140 with moderate variability and reactive. Review of Systems All systems: negative Constitutional: Denies chills, Denies fever Eyes: denies blurred vision, denies pain Ears, nose, mouth and throat: Denies headache, Denies sore throat Cardiovascular: Denies chest pain, Denies shortness of breath Respiratory: Denies cough Gastrointestinal: Denies abdominal pain, Denies diarrhea, Denies nausea, Denies vomiting Genitourinary: Denies dysuria, Denies hematuria Musculoskeletal: Denies myalgias Integumentary: Denies pruritus, Denies rash Neurological: Denies numbness, Denies weakness Psychiatric: Denies anxiety, Denies depression Endocrine: Denies fatigue, Denies weight change Past Medical History Past Medical History: No Reported History Additional Past Medical History / Comment(s): headaches. Obstetric history: First was a vaginal delivery at 39 weeks, 6 pounds. This is her second and she has had care with ri since 8 weeks gestation. A+, abs neg, Rub Imm, Treponemal neg, HIV NR, Hep B neg. normal 1hr GTT, GBS neg. History of Any Multi-Drug Resistant Organisms: None Reported, MRSA Date of last positivie culture/infection: 07/07/2017 MDRO Source:: leg Past Surgical History: No Surgical Hx Reported Past Anesthesia/Blood Transfusion Reactions: No Reported Reaction Past Psychological History: Anxiety, Depression Smoking Status: Never smoker Past Alcohol Use History: None Reported Past Drug Use History: None Reported - Past Family History Mother Family Medical History: No Reported History Medications and Allergies Home Medications Medication Instructions Recorded Confirmed Type Pedi Multivit No.25/Folic Acid 2 tab PO DAILY 07/30/18 11/12/18 History [Flintstones Multivit Chew Tab] Allergies Allergy/AdvReac Type Severity Reaction Status Date / Time No Known Allergies Allergy Verified 11/12/18 06:16 Exam Osteopathic Statement: *. No significant issues noted on an osteopathic structural exam other than those noted in the History and Physical/Consult. Vital Signs Temp Pulse Resp BP Pulse Ox 11/12/18 06:15 96.8 F L 116 H 16 144/78 97 Intake and Output 11/12/18 11/12/18 11/12/18 06:59 14:59 22:59 Intake Total 1000 Balance 1000 Intake: Intake, IV Titration 1000 Amount Lactated Ringers 1,000 ml 1000 @ 125 mls/hr IV .Q8H FERNANDO Rx#:[id number] Other: # Voids 3 Weight 108.862 kg Heart: Regular rate and rhythm Lungs: Clear to auscultation bilaterally Abdomen: Soft, nontender Extremities: Negative Homans sign Results Result Diagrams: 11/12/18 08:00 Abnormal Lab Results - Last 24 Hours (Table) 11/12/18 Range/Units 08:00 Hgb 11.2 L (11.4-16.0) gm/dL MCV 76.5 L (80.0-100.0) fL MCH 24.3 L (25.0-35.0) pg Assessment and Plan (1) Normal labor Current Visit: No Status: Resolved Code(s): O80 - ENCOUNTER FOR FULL-TERM UNCOMPLICATED DELIVERY; Z37.9 - OUTCOME OF DELIVERY, UNSPECIFIED SNOMED Code(s ): 39020913 Plan: 1. Induction of labor with amniotomy and Pitocin 2. Anticipate normal vaginal delivery
[2018-11-12] MEDS ORDERED: ZOLPIDEM 5 MG TAB PO PRN (17:41)
[2018-11-12] MEDS ORDERED: WITCH HAZEL 1 EACH MED..PAD TOPICAL PRN (17:41)
[2018-11-12] MEDS ORDERED: diphenhydrAMINE 50 MG CAP PO PRN (17:41)
[2018-11-12] MEDS ORDERED: LANOLIN CREAM 5 GM TUBE TOPICAL PRN (17:41)
[2018-11-12] MEDS ORDERED: SIMETHICONE 80 MG CHEWABLE PO PRN (17:41)
[2018-11-12] MEDS ORDERED: BENZOCAINE/MENTHOL SPRAY 1 GM/SPRAY AEROSOL TOPICAL PRN (17:41)
[2018-11-12] MEDS ORDERED: diphenhydrAMINE 50 MG/ML 1 ML VIAL IVP PRN ×2 (17:41)
[2018-11-12] MEDS ORDERED: HYDROCORTISONE 2.5% RECTAL CREAM 30 GM TUBE RECTAL PRN (17:41)
[2018-11-12] MEDS ORDERED: diphenhydrAMINE 25 MG CAP PO PRN (17:41)
--- NOTE | 2018-11-12 17:44 | P.PROBDLV ---
Vaginal Delivery Note - . Vaginal Delivery Note: 23-year-old presents at 39 weeks and 6 days for induction of labor. Her cervix was 3 cm dilated, 70 effaced, -2 station. She is arelis irregularly. heart tones 135 140 with moderate variability and reactive. Pitocin was started. Amniotomy was performed at 7:46 AM and clear fluid noted. She progressed slowly throughout the day and epidural was given for pain management. Her cervix was completely dilated at 1720. She pushed, and delivered a viable female over intact perineum under epidural anesthesia at 1726. Head delivered OA, nuchal cord 1 easily reduced, anterior shoulder delivered gentle downward guidance followed by the posterior shoulder and rest of body. Nose and mouth bulb suctioned, cord clamped and cut, placed on mother's abdomen. Apgars 9, 9, weight 6 lbs. 15 oz. Placenta delivered spontaneously, intact with three-vessel cord at 1729. Vagina, cervix, and perineum were inspected. First-degree midline laceration was repaired with 3-0 Vicryl. Estimated blood loss 150 mL. Mother and baby in stable condition.
[2018-11-12] MEDS: IBUPROFEN 600 MG TAB PO PRN (19:38)
[2018-11-13] MEDS: SENNOSIDES-DOCUSATE SODIUM 1 EACH TAB PO SCH ×4 (00:09→20:17)
[2018-11-13] MEDS: IBUPROFEN 600 MG TAB PO PRN ×3 (02:47→18:19)
[2018-11-13] MEDS: ACETAMINOPHEN TAB 325 MG TAB PO PRN ×2 (03:52→20:14)
--- NOTE | 2018-11-13 08:55 | P.DS ---
Providers Date of admission: 11/12/18 06:07 Expected date of discharge: 11/13/18 Attending physician: Eleanor Barr Primary care physician: Stated None - Discharge Diagnosis(es) (1) Normal vaginal delivery Current Visit: No Status: Acute Hospital Course: Pt presented for induction of labor. She underwent normal vaginal delivery and had an uncomplicated course. She will be discharged home PPD #1 in stable condition to follow up with me in 6 weeks. Plan - Discharge Summary New Discharge Prescriptions: New Ibuprofen [Motrin] 600 mg PO Q6HR PRN #30 tab PRN Reason: Mild Pain Or Fever >= 100.5 No Action Pedi Multivit No.25/Folic Acid [Flintstones Multivit Chew Tab] 2 tab PO DAILY Discharge Medication List Pedi Multivit No.25/Folic Acid [Flintstones Multivit Chew Tab] 2 tab PO DAILY [History] Ibuprofen [Motrin] 600 mg PO Q6HR PRN #30 tab 11/13/18 [Rx] Follow up Appointment(s)/Referral(s): Eleanor Barr DO [Doctor of Osteopathic Medicine] - 6 Weeks Discharge Disposition: HOME SELF-CARE
--- NOTE | 2018-11-13 17:40 | P.PN ---
Progress Note - Text Progress Note Date: 11/13/18 I was called to see this patient regards to some mild blood pressure elevations. Patient is status post vaginal delivery yesterday evening. She elective induction. Patient's blood pressures this afternoon for been mildly elevated to 142/86 and 143/62. I discussed with the patient and she is without symptoms except for some swelling which is expected after delivery. She initially wanted to go home this evening when discussing things with Dr. Barr but at this time she would like to stay due to concerns for blood pressure monitoring. I think this is reasonable. Plan is to continue routine care and observe blood pressures overnight most likely will be able to go home tomorrow. I am going to check preeclampsia labs.
[2018-11-13 18:06] LABS: Basophils % (A) 0 %; Eosinophils # (A) 0.2 k/uL (0-0.7); Eosinophils % (A) 2 %; HCT 32.3 % (34.0-46.0); HGB 10.4 gm/dL (11.4-16.0); Hypochromasia Slight; Lymphocytes # (A) 3.7 k/uL (1.0-4.8); Lymphocytes % (A) 30 %; MCH 24.8 pg (25.0-35.0); MCHC 32.2 g/dL (31.0-37.0); MCV 77.2 fL (80.0-100.0); Mean Platelet Volume 6.9; Microcytosis Slight; Monocytes # (A) 0.7 k/uL (0-1.0); Monocytes % (A) 5 %; Neutrophils # (A) 7.3 k/uL (1.3-7.7); Neutrophils % (A) 60 %; Platelet Count 306 k/uL (150-450); RBC 4.19 m/uL (3.80-5.40); RDW 15.4 % (11.5-15.5); WBC 12.3 k/uL (3.8-10.6)
[2018-11-13 18:22] LABS: Albumin 2.9 g/dL (3.5-5.0); Bilirubin, Delta 0.1 mg/dL (0.0-0.2); Bilirubin,Unconjugated 0.2 mg/dL (0.0-1.1); Total Bilirubin 0.3 mg/dL (0.2-1.3); Total Protein 5.5 g/dL (6.3-8.2); Uric Acid 4.7 mg/dL (3.7-7.4)
[2018-11-14] MEDS: SENNOSIDES-DOCUSATE SODIUM 1 EACH TAB PO SCH (08:56)
[2018-11-14 11:39] VITALS: BP 128/88; PULSE 99; RESP 16; TEMP 98.3
== END 2018-11-14 10:05 | disposition home or self-care (01) | DRG 807 ==
LOC: 4FBP 06:07
PROVIDERS: ADMIT Obstetrics & Gynecology; ATTEND Obstetrics & Gynecology
PROC: 10E0XZZ Delivery of Products of Conception, External Approach (ICD-10-PCS; principal; 2018-11-12)
PROC: 0HQ9XZZ Repair Perineum Skin, External Approach (ICD-10-PCS; 2018-11-12)
PROC: 00HU33Z Insertion of Infusion Device into Spinal Canal, Percutaneous Approach (ICD-10-PCS; 2018-11-12)
PROC: 3E0R3BZ Introduction of Anesthetic Agent into Spinal Canal, Percutaneous Approach (ICD-10-PCS; 2018-11-12)
PROC: 10907ZC Drainage of Amniotic Fluid, Therapeutic from Products of Conception, Via Natural or Artificial Opening (ICD-10-PCS; 2018-11-12)
PROC: 3E033VJ Introduction of Other Hormone into Peripheral Vein, Percutaneous Approach (ICD-10-PCS; 2018-11-12)
DX: O69.81X0 Labor and delivery complicated by cord around neck, without compression, not applicable or unspecified (principal); Z37.0 Single live birth; O70.0 First degree perineal laceration during delivery; O99.344 Other mental disorders complicating childbirth; F32.9 Major depressive disorder, single episode, unspecified; F41.9 Anxiety disorder, unspecified; R03.0 Elevated blood-pressure reading, without diagnosis of hypertension; O75.89 Other specified complications of labor and delivery; Z3A.39 39 weeks gestation of pregnancy; Z86.14 Personal history of Methicillin resistant Staphylococcus aureus infection
CPT/HCPCS: 80076; 84550; 85025; 86850; 86900; 86901

== ENCOUNTER 2019-01-17 18:46 | Emergency (ER) | payer OTHER ==
[2019-01-17 18:58] VITALS: BP 146/97; PULSE 73; RESP 18; TEMP 98.3
--- NOTE | 2019-01-17 19:26 | ED ---
General Adult HPI - General Chief complaint: Extremity Injury, Lower Stated complaint: ankle pain Time Seen by Provider: 01/17/19 19:00 Source: patient, RN notes reviewed, old records reviewed Mode of arrival: ambulatory Limitations: no limitations - History of Present Illness Initial comments: 23-year-old female patient with no pertinent past medical history presents ED today with with a left ankle injury. Patient was that she was getting out of a CV when she suffered a left ankle inversion injury. Patient did not fall, did not have any other injury. Patient primary complaint is ankle pain in her left lateral malleolus. Patient laboratory with pain. Patient denies any other complaints today. Systemic: Pt denies fatigue, fever/chills, rash. Pt denies weakness, night sweats, weight loss. Neuro: Pt denies headache, visual disturbances, syncope or pre-syncope. HEENT: Pt denies ocular discharge or irritation, otalgia, rhinorrhea, pharyngitis or notable lymphadenopathy. Cardiopulmonary: Pt denies chest pain, SOB, heart palpitations, dyspnea on exertion. Abdominal/GI: Pt denies abdominal pain, n/v/d. : Pt denies dysuria, burning w/ urination, frequency/urgency. Denies new onset urinary or bowel incontinence. MSK: Pt denies loss of strength or function in extremities. Neuro: Pt denies new onset weakness, paresthesias. - Related Data Home Medications Medication Instructions Recorded Confirmed Pedi Multivit No.25/Folic Acid 2 tab PO DAILY 07/30/18 11/12/18 [Flintstones Multivit Chew Tab] Previous Rx's Medication Instructions Recorded Ibuprofen [Motrin] 600 mg PO Q6HR PRN #30 tab 11/13/18 Allergies Allergy/AdvReac Type Severity Reaction Status Date / Time No Known Allergies Allergy Verified 01/17/19 18:56 Review of Systems ROS Statement: Those systems with pertinent positive or pertinent negative responses have been documented in the HPI. ROS Other: All systems not noted in ROS Statement are negative. Past Medical History Past Medical History: No Reported History Additional Past Medical History / Comment(s): headaches. Obstetric history: First was a vaginal delivery at 39 weeks, 6 pounds. This is her second and she has had care with la since 8 weeks gestation. A+, abs neg, Rub Imm, Treponemal neg, HIV NR, Hep B neg. normal 1hr GTT, GBS neg. History of Any Multi-Drug Resistant Organisms: None Reported, MRSA Date of last positivie culture/infection: 07/07/2017 MDRO Source:: leg Past Surgical History: No Surgical Hx Reported Past Anesthesia/Blood Transfusion Reactions: No Reported Reaction Past Psychological History: Anxiety, Depression Smoking Status: Never smoker Past Alcohol Use History: None Reported Past Drug Use History: None Reported - Past Family History Mother Family Medical History: No Reported History General Exam - General Exam Comments Initial Comments: Constitutional: NAD, AOX3, Pt has pleasant affect. HEENT: NC/AT, trachea midline, neck supple, no lymphadenopathy. Posterior pharynx non erythematous, without exudates. External ears appear normal, without discharge. Mucous membranes moist. Eyes PERRLA, EOM intact. There is no scleral icterus. No pallor noted. Cardiopulmonary: RRR, no murmurs, rubs or gallops, no JVD noted. Lungs CTAB in anterior and posterior chavez. No peripheral edema. Abdominal exam: Abdomen soft and non-distended. Abdomen non-tender to palpation in all 4 quadrants. Bowel sounds active in LLQ. No hepatosplenomegaly. No ecchymosis Neuro: CN II-XII grossly intact. No nuchal rigidity. MSK: Lateral malleolus mild tender to palpation. No ecchymoses. Plantar and dorsiflexion intact. Patient able toes. Posterior tibialis pulses +2. Capillary refill less than 2 seconds. No posterior calf tenderness bilaterally, homans sign negative bilaterally. Posterior tibialis and radial pulse +2 bilaterally. Sensation intact in upper and lower extremities. Full active ROM in upper and lower extremities, 5/5 stregnth. Limitations: no limitations Course Vital Signs 01/17/19 18:56 Temperature 98.3 F Pulse Rate 73 Respiratory 18 Rate Blood Pressure 146/97 O2 Sat by Pulse 97 Oximetry Medical Decision Making - Medical Decision Making 23-year-old female patient with no pertinent past medical history presents ED today with with a left ankle injury. Patient was that she was getting out of a CV when she suffered a left ankle inversion injury. Patient did not fall, did not have any other injury. Patient primary complaint is ankle pain in her left lateral malleolus. Patient laboratory with pain. Patient denies any other complaints today. Patient will signs stable, afebrile. Physical exam displayed: Lateral malleolus mild tender to palpation. No ecchymoses. Plantar and dorsiflexion intact. Patient able toes. Posterior tibialis pulses +2. Capillary refill less than 2 seconds film of foot and ankle did not display any acute osseous process. Patient able to bear weight without pain. Patient placed in Dennis wrap. Patient to follow up with primary care provider in 1-2 days. Patient to follow-up orthopedic consult symptoms persist. Case discussed with Dr. Jacobs. Disposition Clinical Impression: Ankle sprain Disposition: HOME SELF-CARE Condition: Stable Instructions (If sedation given, give patient instructions): Ankle Sprain (ED) Additional Instructions: Patient to adhere to previously discussed treatment plan and will take medication(s) as directed. Patient to follow up with PCP in 1-2 days. Patient to return to ED if symptoms do not improve. Please use Tylenol or Motrin for pain. Please bear weight only as tolerated. Please follow up with primary care provider in 1-2 days for continued evaluation. Patient ER if condition worsens in any way. Is patient prescribed a controlled substance at d/c from ED?: No Referrals: Victoriano Ramírez DO [Primary Care Provider] - 1-2 days Anthony Lindsey DO [Medical Doctor] - 1-2 days
--- NOTE | 2019-01-17 19:43 | XR ---
EXAMINATION TYPE: XR foot complete LT DATE OF EXAM: 01/17/2019 COMPARISON: NONE HISTORY: Ankle pain foot pain TECHNIQUE: 3 views FINDINGS: I see no fracture nor dislocation. Metatarsals are intact. Joint spaces are normal. IMPRESSION: Negative left foot exam.
--- NOTE | 2019-01-17 19:44 | XR ---
EXAMINATION TYPE: XR ankle complete LT DATE OF EXAM: 01/17/2019 COMPARISON: NONE HISTORY: Ankle pain TECHNIQUE: 3 views FINDINGS: Ankle mortise is anatomic. I see no fracture nor dislocation. Joint spaces are normal. IMPRESSION: Negative left ankle exam.
== END 2019-01-17 19:55 | disposition home or self-care (01) ==
LOC: EC 18:46
DX: S93.402A Sprain of unspecified ligament of left ankle, initial encounter (principal); X50.9XXA Other and unspecified overexertion or strenuous movements or postures, initial encounter; Z86.14 Personal history of Methicillin resistant Staphylococcus aureus infection
CPT/HCPCS: 99284

== ENCOUNTER 2019-08-16 14:29 | Emergency (ER) | payer OTHER ==
[2019-08-16 14:47] VITALS: RESP 18; TEMP 99.2
[2019-08-16] MEDS ORDERED: SODIUM CHLORIDE 0.9% 1,000 ML IV STA (14:52)
[2019-08-16 15:09] LABS: Basophils # (A) 0.1 k/uL (0-0.2); Basophils % (A) 1 %; Eosinophils # (A) 0.1 k/uL (0-0.7); Eosinophils % (A) 1 %; HCT 42.6 % (34.0-46.0); HGB 14.2 gm/dL (11.4-16.0); Lymphocytes # (A) 1.8 k/uL (1.0-4.8); Lymphocytes % (A) 24 %; MCH 27.2 pg (25.0-35.0); MCHC 33.4 g/dL (31.0-37.0); MCV 81.7 fL (80.0-100.0); Mean Platelet Volume 5.7; Monocytes # (A) 0.5 k/uL (0-1.0); Monocytes % (A) 7 %; Neutrophils # (A) 4.8 k/uL (1.3-7.7); Neutrophils % (A) 65 %; Platelet Count 305 k/uL (150-450); RBC 5.21 m/uL (3.80-5.40); RDW 13.7 % (11.5-15.5); WBC 7.3 k/uL (3.8-10.6)
[2019-08-16 15:16] LABS: ALT 48 U/L (9-52); AST 40 U/L (14-36); African American GFR (CKD) >90 (>60 ml/min/1.73 sqM); Albumin 4.5 g/dL (3.5-5.0); Alkaline Phosphatase 75 U/L (38-126); Amylase 50 U/L (30-110); Anion Gap 13 mmol/L; Blood Urea Nitrogen 9 mg/dL (7-17); Calcium 9.5 mg/dL (8.4-10.2); Carbon Dioxide 21 mmol/L (22-30); Chloride 105 mmol/L (98-107); Glucose 99 mg/dL (74-99); Potassium 4.1 mmol/L (3.5-5.1); Sodium 139 mmol/L (137-145); Total Bilirubin 0.5 mg/dL (0.2-1.3); Total Protein 7.3 g/dL (6.3-8.2)
[2019-08-16 15:20] LABS: Appearance,Urine Cloudy (Clear); Bilirubin,Urine Negative (Negative); Blood,Urine Negative (Negative); Color,Urine Yellow; Glucose,Urine (UA) Negative (Negative); Ketones,Urine Negative (Negative); Leukocyte Esterase,Urine Moderate (Negative); Mucus,Urine Rare /hpf; Nitrite,Urine Negative (Negative); PH, Urine 6.5 (5.0-8.0); Protein,Urine Trace (Negative); RBC,Urine 8 /hpf (0-5); Specific Gravity,Urine 1.028 (1.001-1.035); Squamous Epithelial Cell,Urine 7 /hpf (0-4); WBC,Urine 6 /hpf (0-5)
[2019-08-16 15:57] LABS: HCG,Quantitative Serum 19931.6 mIU/mL
--- NOTE | 2019-08-16 16:18 | ED ---
General Adult HPI - General Chief complaint: Abdominal Pain Stated complaint: POSS 5 WEEKS , IUD, CRAMPING AND BLEEDING Time Seen by Provider: 08/16/19 14:52 Source: patient, RN notes reviewed Mode of arrival: ambulatory Limitations: no limitations - History of Present Illness Initial comments: 24-year-old female presents to the emergency department for cramping and spotting. Started a few days ago. Patient then became nauseous so considered she may be and took a pacifier. It was positive. Patient's last period was about 5 weeks ago. Patient does have an IUD in place. Patient is a female. Patient has no other complaints at this time including shortness of breath, chest pain, abdominal pain, nausea or vomiting, headache, or visual changes. - Related Data Home Medications Medication Instructions Recorded Confirmed Pedi Multivit No.25/Folic Acid 2 tab PO DAILY 07/30/18 11/12/18 [Flintstones Multivit Chew Tab] Previous Rx's Medication Instructions Recorded Ibuprofen [Motrin] 600 mg PO Q6HR PRN #30 tab 11/13/18 Allergies Allergy/AdvReac Type Severity Reaction Status Date / Time No Known Allergies Allergy Verified 08/16/19 14:47 Review of Systems ROS Statement: Those systems with pertinent positive or pertinent negative responses have been documented in the HPI. ROS Other: All systems not noted in ROS Statement are negative. Past Medical History Past Medical History: No Reported History Additional Past Medical History / Comment(s): headaches. Obstetric history: First was a vaginal delivery at 39 weeks, 6 pounds. This is her second and she has had care with ut since 8 weeks gestation. A+, abs neg, Rub Imm, Treponemal neg, HIV NR, Hep B neg. normal 1hr GTT, GBS neg. History of Any Multi-Drug Resistant Organisms: None Reported, MRSA Date of last positivie culture/infection: 07/07/2017 MDRO Source:: leg Past Surgical History: No Surgical Hx Reported Past Anesthesia/Blood Transfusion Reactions: No Reported Reaction Past Psychological History: Anxiety, Depression Smoking Status: Never smoker Past Alcohol Use History: None Reported Past Drug Use History: None Reported - Past Family History Mother Family Medical History: No Reported History General Exam Limitations: no limitations General appearance: alert, in no apparent distress Head exam: Present: atraumatic, normocephalic, normal inspection Eye exam: Present: normal appearance, PERRL, EOMI. Absent: scleral icterus, conjunctival injection, periorbital swelling ENT exam: Present: normal exam, mucous membranes moist Neck exam: Present: normal inspection, full ROM. Absent: tenderness, meningismus, lymphadenopathy Respiratory exam: Present: normal lung sounds bilaterally. Absent: respiratory distress, wheezes, rales, rhonchi, stridor Cardiovascular Exam: Present: regular rate, normal rhythm, normal heart sounds. Absent: systolic murmur, diastolic murmur, rubs, gallop, clicks GI/Abdominal exam: Present: soft, tenderness (Minimal superpubic tenderness noted.), normal bowel sounds. Absent: distended, guarding, rebound, rigid External exam: Present: normal external exam. Absent: erythema, swelling, lesions, lacerations, ecchymosis Speculum exam: Present: normal speculum exam, other (IUD strings are noted). Absent: erythema, vaginal discharge, cervical discharge, vaginal bleeding, foreign body, tissue, laceration By manual exam: Present: normal by manual exam. Absent: cervical motion tenderness, adnexal tenderness, adnexal mass, uterine enlargement, uterine tenderness Course Vital Signs 08/16/19 08/16/19 14:45 16:41 Temperature 99.2 F 99.2 F Pulse Rate 97 88 Respiratory 18 18 Rate Blood Pressure 143/72 121/77 O2 Sat by Pulse 99 100 Oximetry Medical Decision Making - Medical Decision Making Vitals are stable. CBC CMP unremarkable. Patient is A positive blood type. No bacteria noted in the urine. Patient believes she is about 5 weeks according to her LMP. She is noted to have an IUD and strings are in place during pelvic exam. No bleeding at this time although patient does report spotting. CT was obtained which was 19,000. Obstetrics ultrasound shows an intrauterine gestational sac however pole is too small to detect cardiac activity. Follow-up is recommended in 10 days. She will follow-up with her [employer] [employer] Dr. Barr. She'll call on Monday regarding IUD. At this time as patient is having spotting she'll be diagnosed with a threatened miscarriage. She will return if she has any worsening symptoms. - Lab Data Result diagrams: 08/16/19 14:51 08/16/19 14:51 Lab Results 08/16/19 08/16/19 08/16/19 Range/Units 14:51 14:51 14:51 WBC 7.3 (3.8-10.6) k/uL RBC 5.21 (3.80-5.40) m/uL Hgb 14.2 (11.4-16.0) gm/dL Hct 42.6 (34.0-46.0) % MCV 81.7 (80.0-100.0) fL MCH 27.2 (25.0-35.0) pg MCHC 33.4 (31.0-37.0) g/dL RDW 13.7 (11.5-15.5) % Plt Count 305 (150-450) k/uL Neutrophils % 65 % Lymphocytes % 24 % Monocytes % 7 % Eosinophils % 1 % Basophils % 1 % Neutrophils # 4.8 (1.3-7.7) k/uL Lymphocytes # 1.8 (1.0-4.8) k/uL Monocytes # 0.5 (0-1.0) k/uL Eosinophils # 0.1 (0-0.7) k/uL Basophils # 0.1 (0-0.2) k/uL Sodium 139 (137-145) mmol/L Potassium 4.1 (3.5-5.1) mmol/L Chloride 105 (98-107) mmol/L Carbon Dioxide 21 L (22-30) mmol/L Anion Gap 13 mmol/L BUN 9 (7-17) mg/dL Creatinine 0.82 (0.52-1.04) mg/dL Est GFR (CKD-EPI)AfAm >90 (>60 ml/min/1.73 sqM) Est GFR (CKD-EPI)NonAf >90 (>60 ml/min/1.73 sqM) Glucose 99 (74-99) mg/dL Calcium 9.5 (8.4-10.2) mg/dL Total Bilirubin 0.5 (0.2-1.3) mg/dL AST 40 H (14-36) U/L ALT 48 (9-52) U/L Alkaline Phosphatase 75 (38-126) U/L Total Protein 7.3 (6.3-8.2) g/dL Albumin 4.5 (3.5-5.0) g/dL Amylase 50 (30-110) U/L Lipase 87 (23-300) U/L HCG, Quant 58161.6 mIU/mL Urine Color Urine Appearance (Clear) Urine pH (5.0-8.0) Ur Specific [place] (1.001-1.035) Urine Protein (Negative) Urine Glucose (UA) (Negative) Urine Ketones (Negative) Urine Blood (Negative) Urine Nitrite (Negative) Urine Bilirubin (Negative) Urine Urobilinogen (<2.0) mg/dL Ur Leukocyte Esterase (Negative) Urine RBC (0-5) /hpf Urine WBC (0-5) /hpf Ur Squamous Epith Cells (0-4) /hpf Urine Mucus (None) /hpf Blood Type A Positive Blood Type Recheck A Pos Bld Type Recheck Status No 08/16/19 Range/Units 14:56 WBC (3.8-10.6) k/uL RBC (3.80-5.40) m/uL Hgb (11.4-16.0) gm/dL Hct (34.0-46.0) % MCV (80.0-100.0) fL MCH (25.0-35.0) pg MCHC (31.0-37.0) g/dL RDW (11.5-15.5) % Plt Count (150-450) k/uL Neutrophils % % Lymphocytes % % Monocytes % % Eosinophils % % Basophils % % Neutrophils # (1.3-7.7) k/uL Lymphocytes # (1.0-4.8) k/uL Monocytes # (0-1.0) k/uL Eosinophils # (0-0.7) k/uL Basophils # (0-0.2) k/uL Sodium (137-145) mmol/L Potassium (3.5-5.1) mmol/L Chloride (98-107) mmol/L Carbon Dioxide (22-30) mmol/L Anion Gap mmol/L BUN (7-17) mg/dL Creatinine (0.52-1.04) mg/dL Est GFR (CKD-EPI)AfAm (>60 ml/min/1.73 sqM) Est GFR (CKD-EPI)NonAf (>60 ml/min/1.73 sqM) Glucose (74-99) mg/dL Calcium (8.4-10.2) mg/dL Total Bilirubin (0.2-1.3) mg/dL AST (14-36) U/L ALT (9-52) U/L Alkaline Phosphatase (38-126) U/L Total Protein (6.3-8.2) g/dL Albumin (3.5-5.0) g/dL Amylase (30-110) U/L Lipase (23-300) U/L HCG, Quant mIU/mL Urine Color Yellow Urine Appearance Cloudy H (Clear) Urine pH 6.5 (5.0-8.0) Ur Specific [place] 1.028 (1.001-1.035) Urine Protein Trace H (Negative) Urine Glucose (UA) Negative (Negative) Urine Ketones Negative (Negative) Urine Blood Negative (Negative) Urine Nitrite Negative (Negative) Urine Bilirubin Negative (Negative) Urine Urobilinogen 12.0 (<2.0) mg/dL Ur Leukocyte Esterase Moderate H (Negative) Urine RBC 8 H (0-5) /hpf Urine WBC 6 H (0-5) /hpf Ur Squamous Epith Cells 7 H (0-4) /hpf Urine Mucus Rare H (None) /hpf Blood Type Blood Type Recheck Bld Type Recheck Status Disposition Clinical Impression: Vaginal bleeding during Disposition: HOME SELF-CARE Condition: Good Instructions (If sedation given, give patient instructions): Threatened Miscarriage (ED) Additional Instructions: Please follow-up with her [facility] on Monday. Return here to the emergency department if you have any worsening symptoms. Is patient prescribed a controlled substance at d/c from ED?: No Referrals: Victoriano Ramírez DO [Primary Care Provider] - 1-2 days Time of Disposition: 17:20
[2019-08-16 16:42] VITALS: BP 121/77; PULSE 88
--- NOTE | 2019-08-16 17:01 | US ---
EXAMINATION TYPE: Transabdominal DATE OF EXAM: 08/16/2019 4:33 PM COMPARISON: NONE CLINICAL HISTORY: pain, cramping, IUD. Spotting and cramping, IUD put in a couple months ago, 3, para 2 EXAM PERFORMED: Transvaginal (TV) and Transabdominal (TA) EXAM MEASUREMENTS: GESTATIONAL AGE / DATING Physician Established: Not established yet Dates by LMP: (5 weeks/5 days) EDC: 04/12/2020 Dates by First Scan: This is 1st scan Dates by Current Scan for: ( 5 weeks/5 days) EDC: 04/12/2020 MATERNAL ANATOMY Uterus: 8.0 x 4.8 x 6.0cm, retroverted, IUD seen within endocervical canal Right Ovary: 4.5 x 2.8 x 2.6cm Left Ovary: 2.9 x 2.5 x 2.0cm Post CDS / Adnexa: small amount of free fluid posterior cul de sac Presence of free fluid: yes Presence of corpus luteal cyst: right ovary: 2.3 x 2.3 x 2.1cm Presence of subchorionic bleed: 1.1 x 0.6 x 1.2cm hypoechoic area seen adjacent to gestational sac GESTATION / SURVEY Unable to obtain heart tones at this time, possibly too early CRL: 0.2cm (5 weeks/5 days) MSD: 1.4 (5 weeks/4 days) Yolk Sac (normal less than 6mm): 2.3mm Date of LMP: 07/07/2019 Beta HcG (if available): 19,931.6 IMPRESSION: Intrauterine gestational sac with pole and yolk sac. pole too small to the definitive abo ut cardiac activity. Follow-up recommended in 10 days to show cardiac activity.
[2019-08-18 16:26] LABS: C. trachomatis,PCR Negative (Neg,Equiv); Chlamydia trachomatis Source Vagina
[2019-08-18 16:33] LABS: N. gonorrhoeae,PCR Negative (Neg,Equiv); Neisseria Source Vagina
== END 2019-08-16 17:39 | disposition home or self-care (01) ==
LOC: EC 14:29
DX: O20.9 Hemorrhage in early pregnancy, unspecified (principal); O99.89 Other specified diseases and conditions complicating pregnancy, childbirth and the puerperium; R11.0 Nausea; Z67.10 Type A blood, Rh positive; Z86.14 Personal history of Methicillin resistant Staphylococcus aureus infection; Z97.5 Presence of (intrauterine) contraceptive device; Z3A.01 Less than 8 weeks gestation of pregnancy
CPT/HCPCS: 36415; 76801; 76817; 80053; 81001; 82150; 83690; 84702; 85025; 86900; 86901; 87491; 87591; 87808; 96360; 99284

== ENCOUNTER → 2020-05-12 | Outpatient (CLI) | payer OTHER ==
--- NOTE | 2020-05-12 13:34 | US ---
EXAMINATION TYPE: Transabdominal DATE OF EXAM: 05/12/2020 7:30 AM COMPARISON: NONE CLINICAL HISTORY: Z36 CONFIRM DATES. cramping, confirm dates EXAM PERFORMED: Transabdominal (TA) EXAM MEASUREMENTS: GESTATIONAL AGE / DATING Physician Established: Not yet established Dates by LMP: (10 weeks/2 days) EDC: 12/06/20 Dates by First Scan: No previous this is first scan Dates by Current Scan for: (10 weeks/0 days) EDC: 12/08/20 MATERNAL ANATOMY Uterus: 12.8 x 4.9 x 7.0cm Right Ovary: 3.4 x 1.6 x 1.6cm Left Ovary: 3.0 x 1.5 x 1.6cm Post CDS / Adnexa: appears wnl Presence of free fluid: no Presence of corpus luteal cyst: yes, hypoechoic area right ovary = 1.8 x 1.6 x 1.7cm Presence of subchorionic bleed: yes, inferior to gestational sac = 2.0cm GESTATION / SURVEY CRL: 3.1cm (10 weeks/0 days) Yolk Sac (normal less than 6mm): 0.5cm Heart Rate: 174 bpm Rhythm: Normal IUP: Viable IUP Date of LMP: 03/01/20 Beta HcG (if available): Not available at this time Single viable IUP 10wks/0days with LOLA of 12/08/20. Corpus luteum right ovary. Small subchorionic ble ed inferior to gestational sac. Cystic area adjacent to right ovary = 1.4 x 1.4 x 1.5cm, probable par aovarian cyst. IMPRESSION: Single intrauterine gestation estimated at 10 weeks 0 days gestation based on crown-rump length. Card iac activity measures 174 bpm was present. 2. 2.0 centimeter subchorionic hemorrhage appears to be present
== END | disposition home or self-care (01) ==
LOC: RADUSWWP 07:13
PROVIDERS: ATTEND Obstetrics & Gynecology
DX: O46.8X1 Other antepartum hemorrhage, first trimester (principal); Z3A.10 10 weeks gestation of pregnancy
CPT/HCPCS: 76801

== ENCOUNTER 2020-10-08 13:07 | Outpatient (CLI) | payer OTHER ==
[2020-10-08 14:14] LABS: Appearance,Urine Cloudy (Clear); Bacteria,Urine Rare /hpf; Bilirubin,Urine Negative (Negative); Blood,Urine Small (Negative); Color,Urine Yellow; Glucose,Urine (UA) 1+ (Negative); Leukocyte Esterase,Urine Large (Negative); Mucus,Urine Rare /hpf; Nitrite,Urine Negative (Negative); Protein,Urine Trace (Negative); RBC,Urine 7 /hpf (0-5); Specific Gravity,Urine 1.017 (1.001-1.035); Squamous Epithelial Cell,Urine 11 /hpf (0-4); Urobilinogen,Urine <2.0 mg/dL (<2.0); WBC,Urine 2 /hpf (0-5)
[2020-10-08 14:19] LABS: Ketones,Urine 2+ (Negative)
[2020-10-08 14:28] LABS: Glucose,Whole Blood 126 mg/dL (75-99)
[2020-10-08 16:10] VITALS: BP 136/80; PULSE 106; RESP 16; TEMP 97.2
--- NOTE | 2020-10-12 07:56 | P.MSEPDOC ---
Presenting Problems - Arrival Data Date of Arrival on Unit: 10/08/20 Time of Arrival on Unit: 13:07 Mode of Transport: Wheelchair - Complaint OB-Reason for Admission/Chief Complaint: Headache, Visual Disturbances Comment: pt shopping and developed abdominal cramping which resolved before getting to triage. Complains of headache since last night, did not take any medication, dizziness, nausea this morning Medical History - Information : 4 Para: 2 Term: 2 : 0 Abortions: Spontaneous or Elective: 1 Number of Living Children: 2 - Gestational Age Gestational Age by LOLA (wks/days): 31 Weeks and 4 Days Review of Systems - Review of Systems Constitutional: No problems Breast: No problems ENT: No problems Cardiovascular: No problems Respiratory: No problems Gastrointestinal: No problems Genitourinary: No problems Musculoskeletal: No problems Neurological: Dizziness Skin: No problems Vital Signs - Temperature Temperature: 97.2 F Temperature Source: Temporal Artery Scan - Pulse Right Brachial Pulse Rate: 106 Pulse Assessment Method: Automatic Cuff - Respirations Respiratory Rate: 16 Oxygen Delivery Method: Room Air O2 Sat by Pulse Oximetry: 100 - Blood Pressure Right Arm Blood Pressure: 136/80 Blood Pressure Mean: 98 Blood Pressure Source: Automatic Cuff Medical Screen Scoring (Pre) - Cervical Exam Dilation: Exam Deferred Effacement: Exam Deferred Membranes: Intact - Uterine Contractions Frequency: N/A Duration: N/A Intensity: N/A - Maternal Vital Signs Maternal Temperature: N/A Signs of Preeclampsia: N/A Maternal Respirations: N/A - Maternal Trauma Maternal Trauma: N/A - Assessment - Baby A Baseline FHR: 135 Heart Rate - NICHD Category: Category I (Normal) = 0 NST: Reactive Position: N/A Station: N/A - Total Score - Baby A Total Score - Baby A: 0 - Total Score - Baby B Total Score - Baby B: 0 - Total Score - Baby C Total Score - Baby C: 0 - Level of Risk - Baby A Level of Risk - Baby A: Low (0-5) - Level of Risk - Baby B Level of Risk - Baby B: Low (0-5) - Level of Risk - Baby C Level of Risk - Baby C: Low (0-5) Physician Notification (Pre) - Physician Notified Physician Notified Date: 10/08/20 Physician Notified Time: 14:45 New Order Received: Yes - Notification Comment Comment: ok to d/c with instruction to hydrate, rest, minimize sugars and carbs Disposition - Disposition OB Disposition: Triage, Discharge to home, Written follow up instructions reviewed Discharge Date: 10/08/20 Discharge Time: 14:50 I agree with the RN Medical Screening Exam: Yes Risk & Benefit of care provided described in d/c instruction: Yes Diagnosis: HEADACHE, UNSPECIFIED
== END 2020-10-08 14:50 | disposition home or self-care (01) ==
LOC: FBPOP 13:07
PROVIDERS: ATTEND Obstetrics & Gynecology
DX: O99.891 Other specified diseases and conditions complicating pregnancy (principal); R51.9 Headache, unspecified; Z3A.31 31 weeks gestation of pregnancy
CPT/HCPCS: 59025; 81001; G0463; 99213

== ENCOUNTER 2020-11-23 12:00 | Outpatient (CLI) | payer OTHER ==
[2020-11-23 12:52] VITALS: BP 131/87; PULSE 113; RESP 16; TEMP 97.3
--- NOTE | 2020-11-28 20:26 | P.MSEPDOC ---
Presenting Problems - Arrival Data Date of Arrival on Unit: 11/23/20 Time of Arrival on Unit: 12:00 Mode of Transport: Ambulatory - Complaint OB-Reason for Admission/Chief Complaint: Acute Nausea/Vomiting Medical History - Information : 4 Para: 2 Term: 2 : 0 Abortions: Spontaneous or Elective: 1 Number of Living Children: 2 - Gestational Age Gestational Age by LOLA (wks/days): 38 Weeks and 1 Days Review of Systems - Review of Systems Constitutional: No problems Breast: No problems ENT: No problems Cardiovascular: No problems Respiratory: No problems Gastrointestinal: No problems Genitourinary: No problems Musculoskeletal: No problems Neurological: No problems Skin: No problems Vital Signs - Temperature Temperature: 97.3 F Temperature Source: Temporal Artery Scan - Pulse Right Pulse Rate: 113 Pulse Assessment Method: Automatic Cuff - Respirations Respiratory Rate: 16 Oxygen Delivery Method: Room Air O2 Sat by Pulse Oximetry: 97 - Blood Pressure Right Arm Blood Pressure: 131/87 Blood Pressure Mean: 101 Blood Pressure Source: Automatic Cuff Medical Screen Scoring (Pre) - Cervical Exam Dilation: Exam Deferred Effacement: Exam Deferred Membranes: Intact - Uterine Contractions Frequency: N/A Duration: N/A Intensity: N/A - Maternal Vital Signs Maternal Temperature: N/A Maternal Blood Pressure: N/A Signs of Preeclampsia: N/A Maternal Respirations: N/A - Total Score - Baby A Total Score - Baby A: 0 - Total Score - Baby B Total Score - Baby B: 0 - Total Score - Baby C Total Score - Baby C: 0 - Level of Risk - Baby A Level of Risk - Baby A: Low (0-5) - Level of Risk - Baby B Level of Risk - Baby B: Low (0-5) - Level of Risk - Baby C Level of Risk - Baby C: Low (0-5) Physician Notification (Pre) - Physician Notified Physician Notified Date: 11/23/20 Physician Notified Time: 12:30 New Order Received: Yes - Notification Comment Comment: d/c with instructions, has appt Disposition - Disposition OB Disposition: Triage, Discharge to home, Written follow up instructions reviewed Discharge Date: 11/23/20 Discharge Time: 12:35 I agree with the RN Medical Screening Exam: Yes Case reviewed; plan agreed upon as documented in EMR&OBIX.: Yes Diagnosis: NAUSEA WITH VOMITING, UNSPECIFIED
== END 2020-11-23 12:35 | disposition home or self-care (01) ==
LOC: FBPOP 12:00
PROVIDERS: ATTEND Obstetrics & Gynecology
DX: O21.0 Mild hyperemesis gravidarum (principal); Z3A.38 38 weeks gestation of pregnancy
CPT/HCPCS: 59025; G0463; 99213

== ENCOUNTER 2020-11-26 15:05 | Outpatient (CLI) | payer OTHER ==
[2020-11-26 16:13] LABS: Basophils % (A) 0 %; Eosinophils # (A) 0.1 k/uL (0-0.7); Eosinophils % (A) 1 %; HCT 34.7 % (34.0-46.0); HGB 11.3 gm/dL (11.4-16.0); Hypochromasia Marked; Lymphocytes % (A) 25 %; MCH 27.1 pg (25.0-35.0); MCHC 32.7 g/dL (31.0-37.0); Monocytes # (A) 0.6 k/uL (0-1.0); Monocytes % (A) 5 %; Neutrophils % (A) 67 %; Platelet Count 277 k/uL (150-450); RBC 4.18 m/uL (3.80-5.40); RDW 14.2 % (11.5-15.5)
[2020-11-26 16:21] LABS: INR 0.9 (<1.2); Partial Thromboplastin Time 22.7 sec (22.0-30.0); Prothrombin Time 9.8 sec (9.0-12.0)
[2020-11-26 16:26] LABS: ALT 11 U/L (4-34); AST 19 U/L (14-36); African American GFR (CKD) >90 (>60 ml/min/1.73 sqM); Blood Urea Nitrogen 7 mg/dL (7-17); LDH 429 U/L (313-618); Non-African American GFR(CKD) >90 (>60 ml/min/1.73 sqM); Uric Acid 4.1 mg/dL (3.7-7.4)
[2020-11-26 16:54] LABS: Appearance,Urine Cloudy (Clear); Bilirubin,Urine Negative (Negative); Blood,Urine Moderate (Negative); Calcium Oxalate Crystals,Urine Few /hpf; Color,Urine Yellow; Glucose,Urine (UA) Trace (Negative); Hyaline Casts,Urine 2 /lpf (0-2); Ketones,Urine Trace (Negative); Leukocyte Esterase,Urine Large (Negative); Mucus,Urine Many /hpf; Nitrite,Urine Negative (Negative); Protein,Urine 1+ (Negative); RBC,Urine 6 /hpf (0-5); Specific Gravity,Urine 1.029 (1.001-1.035); Squamous Epithelial Cell,Urine 15 /hpf (0-4); Urobilinogen,Urine <2.0 mg/dL (<2.0); WBC,Urine 30 /hpf (0-5)
[2020-11-26 17:01] LABS: Creatinine,Urine Random 232.2 mg/dL; Protein/Creatinine Ratio,Urine 0.047
== END 2020-11-26 17:35 | disposition home or self-care (01) ==
LOC: FBPOP 15:05
PROVIDERS: ATTEND Obstetrics & Gynecology
DX: O13.9 Gestational [pregnancy-induced] hypertension without significant proteinuria, unspecified trimester (principal); Z3A.00 Weeks of gestation of pregnancy not specified
CPT/HCPCS: 59025; 81001; 82565; 82570; 83615; 84156; 84450; 84460; 84520; 84550; 85025; 85384; 85610; 85730

== ENCOUNTER 2020-11-28 09:08 | Inpatient (IN) | payer OTHER ==
[2020-11-28] MEDS ORDERED: METHYLERGONOVINE 0.2 MG/ML 1 ML AMP IM PRN (10:01)
[2020-11-28] MEDS ORDERED: LIDOCAINE 0.5% (PF) 5 MG/ML (50 ML SDV) SQ PRN (10:01)
[2020-11-28] MEDS ORDERED: OXYTOCIN 10 UNIT/ML 1 ML VIAL IM PRN (10:01)
[2020-11-28] MEDS ORDERED: CARBOPROST TROMETHAMINE 250 MCG/ML 1 ML AMP IM PRN (10:01)
[2020-11-28] MEDS ORDERED: TERBUTALINE 1 MG/ML VIAL SQ PRN (10:01)
[2020-11-28] MEDS ORDERED: OXYTOCIN 30 UNITS/500 ML NS 30 UNIT in SALINE 1 500ML.BAG IV SCH ×2 (10:15→22:00)
[2020-11-28] MEDS: LACTATED RINGERS 1,000 ML IV SCH ×3 (10:45→19:20)
[2020-11-28 11:01] LABS: Basophils % (A) 0 %; Eosinophils # (A) 0.1 k/uL (0-0.7); Eosinophils % (A) 1 %; HCT 36.3 % (34.0-46.0); HGB 11.5 gm/dL (11.4-16.0); Hypochromasia Slight; Lymphocytes # (A) 2.5 k/uL (1.0-4.8); Lymphocytes % (A) 22 %; MCH 24.2 pg (25.0-35.0); MCHC 31.8 g/dL (31.0-37.0); Mean Platelet Volume 7.4; Microcytosis Slight; Monocytes # (A) 0.6 k/uL (0-1.0); Monocytes % (A) 5 %; Neutrophils % (A) 70 %; Platelet Count 292 k/uL (150-450); RBC 4.77 m/uL (3.80-5.40); RDW 14.5 % (11.5-15.5); WBC 11.3 k/uL (3.8-10.6)
[2020-11-28 11:04] LABS: MCV 76.2 fL (80.0-100.0)
[2020-11-28 11:06] LABS: INR 0.9 (<1.2); Prothrombin Time 9.7 sec (9.0-12.0)
[2020-11-28 11:10] LABS: Partial Thromboplastin Time 21.8 sec (22.0-30.0)
--- NOTE | 2020-11-28 16:53 | P.HPOB ---
History of Present Illness H&P Date: 11/28/20 Chief Complaint: Gestational hypertension 25-year-old presented to triage at 38 weeks and 5 days for follow-up NST after some elevated blood pressures a few days ago. She had another elevated blood pressure in triage and was diagnosed with gestational hypertension. Her a call guidelines we should move towards delivery after 37 weeks with gestational hypertension so patient will be admitted for induction of labor. Her cervix is 2 cm, 60% effaced, -2 station. She is arelis irregularly. heart tones are 135 with moderate variability and reactive. Review of Systems All systems: negative Constitutional: Denies chills, Denies fever Eyes: denies blurred vision, denies pain Ears, nose, mouth and throat: Denies headache, Denies sore throat Cardiovascular: Denies chest pain, Denies shortness of breath Respiratory: Denies cough Gastrointestinal: Denies abdominal pain, Denies diarrhea, Denies nausea, Denies vomiting Genitourinary: Denies dysuria, Denies hematuria Musculoskeletal: Denies myalgias Integumentary: Denies pruritus, Denies rash Neurological: Denies numbness, Denies weakness Psychiatric: Denies anxiety, Denies depression Endocrine: Denies fatigue, Denies weight change Past Medical History Past Medical History: No Reported History Additional Past Medical History / Comment(s): headaches. Obstetric history: First and second pregnancies were vaginal deliveries. Third was elective termination. This is her fourth . A+, abs neg, Rub Imm, Treponemal neg, HIV NR, Hep B neg. normal 1hr GTT, GBS neg. History of Any Multi-Drug Resistant Organisms: MRSA Date of last positivie culture/infection: 07/07/2017 MDRO Source:: left calf Past Surgical History: Tonsillectomy Past Anesthesia/Blood Transfusion Reactions: No Reported Reaction Past Psychological History: Anxiety, Depression Smoking Status: Never smoker Past Alcohol Use History: None Reported Past Drug Use History: None Reported - Past Family History Mother Family Medical History: No Reported History Medications and Allergies Home Medications Medication Instructions Recorded Confirmed Type Sertraline [Zoloft] 50 mg PO DAILY 10/08/20 11/28/20 History Allergies Allergy/AdvReac Type Severity Reaction Status Date / Time No Known Allergies Allergy Verified 11/28/20 09:18 Exam Osteopathic Statement: *. No significant issues noted on an osteopathic structural exam other than those noted in the History and Physical/Consult. Vital Signs Temp Pulse Resp BP Pulse Ox 11/28/20 11:15 95.8 F L 108 H 18 141/95 99 11/28/20 09:55 95.8 F L 108 H 18 138/89 99 Intake and Output 11/28/20 11/28/20 11/28/20 06:59 14:59 22:59 Intake Total 300 Balance 300 Intake: IV 300 Other: # Voids 2 Weight 96.615 kg Heart: Regular rate and rhythm Lungs: Clear to auscultation bilaterally Abdomen: Soft, nontender Extremities: Negative Homans sign Results Result Diagrams: 11/28/20 10:48 Abnormal Lab Results - Last 24 Hours (Table) 11/28/20 11/28/20 Range/Units 10:35 10:48 WBC 11.3 H (3.8-10.6) k/uL MCV 76.2 L D (80.0-100.0) fL MCH 24.2 L (25.0-35.0) pg Neutrophils # 8.0 H (1.3-7.7) k/uL APTT 21.8 L (22.0-30.0) sec Assessment and Plan (1) Gestational hypertension affecting fourth Current Visit: Yes Status: Acute Code(s): O13.9 - GESTATIONAL HTN W/O SIGNIFICANT PROTEINURIA, UNSP TRIMESTER SNOMED Code(s): 78524851 (2) 38 weeks gestation of Current Visit: Yes Status: Acute Code(s): Z3A.38 - 38 WEEKS GESTATION OF SNOMED Code(s): 80189845 Plan: 1. Amniotomy Pitocin for induction of labor 2. Anticipate normal vaginal delivery
--- NOTE | 2020-11-28 20:33 | P.MSEPDOC ---
Presenting Problems - Arrival Data Date of Arrival on Unit: 11/28/20 Time of Arrival on Unit: 09:30 Mode of Transport: Ambulatory - Complaint OB-Reason for Admission/Chief Complaint: NST, PIH Medical History - Information : 4 Para: 2 Term: 2 : 0 Abortions: Spontaneous or Elective: 0 Number of Living Children: 2 - Gestational Age Gestational Age by LOLA (wks/days): 38 Weeks and 6 Days - History Comment: gest hypertesion Review of Systems - Review of Systems Constitutional: No problems Breast: No problems ENT: No problems Cardiovascular: No problems Respiratory: No problems Gastrointestinal: No problems Genitourinary: No problems Musculoskeletal: No problems Neurological: No problems Skin: No problems Vital Signs - Temperature Temperature: 95.8 F - Pulse Right Pulse Rate: 108 Pulse Assessment Method: Automatic Cuff - Respirations Respiratory Rate: 18 Oxygen Delivery Method: Room Air O2 Sat by Pulse Oximetry: 99 - Blood Pressure Right Arm Blood Pressure: 141/95 Blood Pressure Mean: 110 Blood Pressure Source: Automatic Cuff Medical Screen Scoring (Pre) - Cervical Exam Dilation: Exam Deferred Effacement: Exam Deferred Membranes: Intact - Uterine Contractions Frequency: > 5 minutes apart = 1 Duration: > 40 seconds = 2 Intensity: N/A - Maternal Vital Signs Maternal Temperature: N/A Maternal Blood Pressure: Diastolic > 89 = 1 Signs of Preeclampsia: Headache = 1, Nausea/Vomiting = 1, Visual Disturbance = 1 Maternal Respirations: N/A - Maternal Trauma Maternal Trauma: N/A - Assessment - Baby A Baseline FHR: 150 Heart Rate - NICHD Category: Category I (Normal) = 0 NST: Reactive Position: N/A Station: N/A - Total Score - Baby A Total Score - Baby A: 7 - Total Score - Baby B Total Score - Baby B: 7 - Total Score - Baby C Total Score - Baby C: 7 - Level of Risk - Baby A Level of Risk - Baby A: Medium (6-9) - Level of Risk - Baby B Level of Risk - Baby B: Medium (6-9) - Level of Risk - Baby C Level of Risk - Baby C: Medium (6-9) Physician Notification (Pre) - Physician Notified Physician Notified Date: 11/28/20 Physician Notified Time: 09:30 New Order Received: Yes - Notification Comment Comment: admit pt for induction of labor Disposition - Disposition OB Disposition: Admit, LDRP Suite I agree with the RN Medical Screening Exam: Yes Case reviewed; plan agreed upon as documented in EMR&OBIX.: Yes Diagnosis: GESTATIONAL HTN W/O SIGNIFICANT PROTEINURIA, THIRD TRIMESTER
[2020-11-28] MEDS ORDERED: ROPIVACAINE 100 MG, fentaNYL (PF) 200 MCG in SODIUM CHLORIDE 0.9% 76 ML EPIDURAL ONE (20:42)
[2020-11-28] MEDS ORDERED: diphenhydrAMINE 50 MG/ML 1 ML VIAL IVP PRN ×2 (21:48)
[2020-11-28] MEDS ORDERED: BENZOCAINE/MENTHOL SPRAY 1 GM/SPRAY AEROSOL TOPICAL PRN (21:48)
[2020-11-28] MEDS ORDERED: SIMETHICONE 80 MG CHEWABLE PO PRN (21:48)
[2020-11-28] MEDS ORDERED: diphenhydrAMINE 25 MG CAP PO PRN (21:48)
[2020-11-28] MEDS ORDERED: HYDROCORTISONE 2.5% RECTAL CREAM 30 GM TUBE RECTAL PRN (21:48)
[2020-11-28] MEDS ORDERED: ZOLPIDEM 5 MG TAB PO PRN (21:48)
[2020-11-28] MEDS ORDERED: LANOLIN CREAM 5 GM TUBE TOPICAL PRN (21:48)
[2020-11-28] MEDS ORDERED: diphenhydrAMINE 50 MG CAP PO PRN (21:48)
[2020-11-28] MEDS: IBUPROFEN 600 MG TAB PO PRN (22:11)
[2020-11-29] MEDS: SENNOSIDES-DOCUSATE SODIUM 1 EACH TAB PO SCH ×2 (00:27→08:08)
[2020-11-29] MEDS: ACETAMINOPHEN TAB 325 MG TAB PO PRN ×3 (00:27→20:10)
[2020-11-29] MEDS: IBUPROFEN 600 MG TAB PO PRN (08:09)
[2020-11-29] MEDS ORDERED: SERTRALINE 50 MG TAB PO SCH (09:00)
--- NOTE | 2020-11-29 09:16 | P.PROBDLV ---
Vaginal Delivery Note - . Vaginal Delivery Note: 25-year-old presented to triage at 38 weeks and 5 days for follow-up NST after some elevated blood pressures a few days ago. She had another elevated blood pressure in triage and was diagnosed with gestational hypertension. Her a call guidelines we should move towards delivery after 37 weeks with gestational hypertension so patient will be admitted for induction of labor. Her cervix is 2 cm, 60% effaced, -2 station. She is arelis irregularly. heart tones are 135 with moderate variability and reactive. Pitocin was started. Amniotomy performed at 10:41 AM clear fluid noted. When she was uncomfortable she did get an epidural. Her cervix was completely dilated at 2130. She pushed, and delivered a viable male over intact perineum under epidural anesthesia at 2137. Head delivered OA, anterior shoulder delivered gentle downward guidance for by posterior shoulder and rest of body. Nose and mouth bulb suctioned, cord clamped and cut, placed on mother's abdomen. Apgars 9, 9, weight 7 lbs. 6 oz. Placenta delivered spontaneously, intact with three- vessel cord at 2140. Vagina, cervix, perineum inspected. No lacerations noted. Estimated blood loss 250 mL. Mother and baby in stable condition.
--- NOTE | 2020-11-29 09:17 | P.PNOBGVD ---
Subjective - Subjective Principal diagnosis: Status post normal vaginal delivery day #1 Interval history: Patient seen and examined. Denies nausea, vomiting, chest pain, shortness of breath or any calf pain. Patient reports: Reports appetite normal, Reports voiding normally, Reports pain well controlled, Reports ambulating normally Independence: doing well Objective - Latest Vital Signs Latest vital signs: Vital Signs Temp Pulse Resp BP Pulse Ox 11/29/20 08:00 98.1 F 84 18 127/84 99 11/29/20 04:00 98.0 F 98 16 106/63 11/29/20 00:00 105 H 16 125/57 11/28/20 23:42 97 16 142/81 11/28/20 22:58 90 16 134/71 11/28/20 22:43 93 16 132/76 11/28/20 22:28 93 16 136/78 11/28/20 22:13 105 H 16 142/70 11/28/20 21:58 97 16 148/88 11/28/20 21:44 97.1 F L 113 H 18 153/104 11/28/20 20:33 95.8 F L 108 H 18 141/95 99 11/28/20 11:15 95.8 F L 108 H 18 141/95 99 11/28/20 09:55 95.8 F L 108 H 18 138/89 99 Intake and Output 11/28/20 11/29/20 11/29/20 22:59 06:59 14:59 Output Total 250 Balance -250 Output: Estimated Blood Loss 250 Other: # Voids 1 1 1 - Exam Lungs: bilateral: normal Chest: Normal S1, Normal S2 Extremities: Present: normal Abdomen: Present: normal appearance, soft Uterus: Present: normal, firm - Labs Labs: Abnormal Lab Results - Last 24 Hours (Table) 11/28/20 11/28/20 Range/Units 10:35 10:48 WBC 11.3 H (3.8-10.6) k/uL MCV 76.2 L D (80.0-100.0) fL MCH 24.2 L (25.0-35.0) pg Neutrophils # 8.0 H (1.3-7.7) k/uL APTT 21.8 L (22.0-30.0) sec Assessment and Plan (1) Gestational hypertension affecting fourth Current Visit: Yes Status: Resolved Code(s): O13.9 - GESTATIONAL HTN W/O SIGNIFICANT PROTEINURIA, UNSP TRIMESTER SNOMED Code(s): 97479528 (2) 38 weeks gestation of Current Visit: Yes Status: Resolved Code(s): Z3A.38 - 38 WEEKS GESTATION OF SNOMED Code(s): 57961925 (3) Normal vaginal delivery Current Visit: No Status: Acute Code(s): O80 - ENCOUNTER FOR FULL-TERM UNCOMPLICATED DELIVERY SNOMED Code(s): 50978436 Plan: 1. Continue care
[2020-11-29 20:17] VITALS: RESP 16
[2020-11-30 01:13] VITALS: PULSE 85
[2020-11-30] MEDS: IBUPROFEN 600 MG TAB PO PRN (05:03)
--- NOTE | 2020-11-30 08:20 | P.DS ---
Providers Date of admission: 11/28/20 09:42 Expected date of discharge: 11/30/20 Attending physician: Eleanor Barr Primary care physician: Stated None - Discharge Diagnosis(es) (1) Gestational hypertension affecting fourth Current Visit: Yes Status: Resolved (2) 38 weeks gestation of Current Visit: Yes Status: Resolved (3) Normal vaginal delivery Current Visit: No Status: Acute Hospital Course: Patient presented for a blood pressure check and NST. She was diagnosed with gestational hypertension at this triage visit and kept for induction of labor. She underwent a normal vaginal delivery with amniotomy and Pitocin. Her course was uncomplicated. She denies nausea, vomiting, chest pain, shortness of breath or any calf pain. She'll be discharged home day #2 in stable condition to follow-up with me in 6 weeks. Plan - Discharge Summary New Discharge Prescriptions: No Action Sertraline [Zoloft] 50 mg PO DAILY Discharge Medication List Sertraline [Zoloft] 50 mg PO DAILY 10/08/20 [History]
[2020-11-30 08:48] VITALS: BP 136/81; TEMP 98.7
[2020-11-30] MEDS: SENNOSIDES-DOCUSATE SODIUM 1 EACH TAB PO SCH (08:48)
== END 2020-11-30 09:49 | disposition home or self-care (01) | DRG 807 ==
LOC: FBPOP 09:08 → 4FBP 09:42
PROVIDERS: ADMIT Obstetrics & Gynecology; ATTEND Obstetrics & Gynecology
PROC: 00HU33Z Insertion of Infusion Device into Spinal Canal, Percutaneous Approach (ICD-10-PCS; principal; 2020-11-28)
PROC: 3E033VJ Introduction of Other Hormone into Peripheral Vein, Percutaneous Approach (ICD-10-PCS; principal; 2020-11-28)
PROC: 10907ZC Drainage of Amniotic Fluid, Therapeutic from Products of Conception, Via Natural or Artificial Opening (ICD-10-PCS; principal; 2020-11-28)
PROC: 3E0R3BZ Introduction of Anesthetic Agent into Spinal Canal, Percutaneous Approach (ICD-10-PCS; principal; 2020-11-28)
PROC: 10E0XZZ Delivery of Products of Conception, External Approach (ICD-10-PCS; principal; 2020-11-28)
DX: O13.4 Gestational [pregnancy-induced] hypertension without significant proteinuria, complicating childbirth (principal); Z37.0 Single live birth; O99.344 Other mental disorders complicating childbirth; F32.9 Major depressive disorder, single episode, unspecified; Z3A.38 38 weeks gestation of pregnancy; F41.9 Anxiety disorder, unspecified; Z79.899 Other long term (current) drug therapy; Z86.14 Personal history of Methicillin resistant Staphylococcus aureus infection
CPT/HCPCS: 59025; 85025; 85610; 85730; 86850; 86900; 86901; 99213

== ENCOUNTER → 2021-03-04 | Outpatient (CLI) | payer OTHER ==
[2021-03-04 16:31] LABS: Anisocytosis Slight; Basophils % (A) 1 %; Eosinophils # (A) 0.1 k/uL (0-0.7); Eosinophils % (A) 3 %; HCT 41.2 % (34.0-46.0); Hypochromasia Slight; Lymphocytes # (A) 2.5 k/uL (1.0-4.8); Lymphocytes % (A) 50 %; MCHC 31.5 g/dL (31.0-37.0); MCV 79.5 fL (80.0-100.0); Mean Platelet Volume 6.8; Microcytosis Slight; Monocytes # (A) 0.3 k/uL (0-1.0); Monocytes % (A) 6 %; Neutrophils # (A) 1.9 k/uL (1.3-7.7); Neutrophils % (A) 38 %; Platelet Count 219 k/uL (150-450); RBC 5.19 m/uL (3.80-5.40); RDW 17.6 % (11.5-15.5)
== END | disposition home or self-care (01) ==
LOC: LABPAT 15:53
PROVIDERS: ATTEND Obstetrics & Gynecology
DX: Z01.818 Encounter for other preprocedural examination (principal)
CPT/HCPCS: 36415; 85025

== ENCOUNTER 2021-03-05 06:53 | Day surgery (SDC) | payer OTHER ==
[2021-03-02 10:02] VITALS: BMI 28.8
[~2021-03-05 06:53] MED LIST: DEXAMETHASONE SOD PHOSPHATE 4 MG/ML 1 ML VIAL IV ONE; LACTATED RINGERS 1,000 ML IV SCH; MIDAZOLAM 2 MG/2 ML VIAL IV PRN; ONDANSETRON 4 MG/2 ML VIAL IVP ONE; Pre Op ABX Message 1 EACH MISC MISCELLANE ONE; SCOPOLAMINE 1.5MG/72HR PATCH TRANSDERM ONE
[2021-03-05] MEDS ORDERED: HYDROmorphone 0.5 MG/0.5 ML SYRINGE IVP PRN (07:00)
[2021-03-05] MEDS ORDERED: LIDOCAINE 1% (10MG/ML) FOR IV START INTRADERMA ONE (07:29)
--- NOTE | 2021-03-05 07:46 | P.HPOB ---
History of Present Illness H&P Date: 03/05/21 Chief Complaint: family planning 26 year old presents for laparoscopic tubal ligation. Review of Systems All systems: negative Constitutional: Denies chills, Denies fever Eyes: denies blurred vision, denies pain Ears, nose, mouth and throat: Denies headache, Denies sore throat Cardiovascular: Denies chest pain, Denies shortness of breath Respiratory: Denies cough Gastrointestinal: Denies abdominal pain, Denies diarrhea, Denies nausea, Denies vomiting Genitourinary: Denies dysuria, Denies hematuria Musculoskeletal: Denies myalgias Integumentary: Denies pruritus, Denies rash Neurological: Denies numbness, Denies weakness Psychiatric: Denies anxiety, Denies depression Endocrine: Denies fatigue, Denies weight change Past Medical History Past Medical History: No Reported History History of Any Multi-Drug Resistant Organisms: MRSA Date of last positivie culture/infection: 07/07/2017 MDRO Source:: left calf Past Surgical History: Tonsillectomy Past Anesthesia/Blood Transfusion Reactions: No Reported Reaction Past Psychological History: Anxiety, Depression Smoking Status: Never smoker Past Alcohol Use History: Occasional Past Drug Use History: None Reported - Past Family History Mother Family Medical History: No Reported History Medications and Allergies Home Medications Medication Instructions Recorded Confirmed Type Sertraline [Zoloft] 50 mg PO HS 10/08/20 03/05/21 History Allergies Allergy/AdvReac Type Severity Reaction Status Date / Time No Known Allergies Allergy Verified 03/05/21 07:39 Exam Osteopathic Statement: *. No significant issues noted on an osteopathic structural exam other than those noted in the History and Physical/Consult. Vital Signs Temp Pulse Resp BP Pulse Ox 03/05/21 07:15 97.6 F 86 16 126/89 97 Intake and Output 03/04/21 03/05/21 03/05/21 22:59 06:59 14:59 Other: Weight 89 kg Heart: Regular rate and rhythm Lungs: Clear to auscultation bilaterally Abdomen: Soft, nontender Extremities: Negative Homans sign Assessment and Plan (1) Family planning Current Visit: Yes Status: Acute Code(s): Z30.09 - ENCOUNTER FOR OTH GENERAL CNSL AND ADVICE ON CONTRACEPTION SNOMED Code(s): 485849871 Plan: 1. Laparoscopic tubal ligation
[2021-03-05] MEDS ORDERED: BUPIVACAINE (PF) 0.25% 30 ML VIAL SQ ONE ×2 (07:48→08:24)
[2021-03-05] MEDS ORDERED: PROPOFOL 10 MG/ML 20 ML VIAL IV ONE (07:52)
[2021-03-05] MEDS ORDERED: fentaNYL (PF) 50 MCG/ML 2 ML AMP ONE (07:52)
[2021-03-05] MEDS ORDERED: SUCCINYLCHOLINE CHLORIDE 100 MG/5 ML SYR IV ONE (07:52)
[2021-03-05] MEDS ORDERED: LIDOCAINE 1% INJ 10MG/ML (20 ML MDV) ONE (07:52)
[2021-03-05] MEDS ORDERED: MIDAZOLAM 2 MG/2 ML VIAL ONE (07:52)
[2021-03-05] MEDS ORDERED: ACETAMINOPHEN IV (For NPO) 1,000 MG/100 ML VIAL ONE (07:52)
[2021-03-05] MEDS ORDERED: KETOROLAC 15 MG/ML 1 ML VIAL ONE (07:52)
[2021-03-05 08:48] VITALS: TEMP 97
--- NOTE | 2021-03-05 08:48 | P.OP ---
Date of Procedure: 03/05/21 Preoperative Diagnosis: 1. Family planning Postoperative Diagnosis: 1. Family planning 2. Vulvar lesion: Suspect condyloma Procedure(s) Performed: Laparoscopic tubal ligation and removal of vulvar lesion on the left Anesthesia: PAULA Surgeon: Eleanor Barr Estimated Blood Loss (ml): 2 IV fluids (ml): 400 Urine output (ml): 20 Pathology: none sent Condition: stable Disposition: PACU Operative Findings: Uterus, tubes, ovaries. 2 cm condyloma on the left vulva Description of Procedure: Patient was taken to the operating room where general anesthesia was obtained without difficulty. She was prepped and draped in normal sterile fashion in the dorsal lithotomy position, legs placed in the Cuate stirrups. Bladder drained of all urine. [place] speculum placed in the vagina and the anterior lip the cervix was grasped with single-tooth tenaculum. The uterus is sounded to 7 cm and the kroner manipulator was placed. Attention was then turned to the abdomen and gloves were changed. A 10 mm infraumbilical incision was made the scalpel and 10 mm optical trocar was placed under direct visualization. A 5 mm suprapubic Incision was made and a 5 mm optical trocar was placed under direct visualization. Survey of the pelvis revealed normal uterus tubes and ovaries. The left fallopian tube was grasped with a Kleppinger and fulgurated 2-3 cm on this side in the ampullar portion. The right fallopian tube was grasped with a Kleppinger and fulgurated 2-3 cm in the ampullar portion. All instruments were then removed from the abdomen and vagina. The 10 mm infraumbilical incision was closed with 0 Vicryl and the fascial layer and then 4-0 Vicryl in a subcuticular fashion. The 5 mm incision was closed with 4-0 Vicryl in a subcuticular fashion. I then infiltrated the left vulvar condyloma with local anesthetic. I used a 15 blade to cut out the incision and then the 4-0 Vicryl to close the skin in subcuticular fashion. Patient tolerated procedure well, sponge and instrument counts correct 2 and she was taken to recovery room in stable condition.
[2021-03-05 09:40] VITALS: RESP 20
[2021-03-05] MEDS ORDERED: HYDROcodone/APAP 7.5-325MG 1 EACH TAB ONE (09:54)
[2021-03-05] MEDS ORDERED: HYDROcodone/APAP 7.5-325MG 1 EACH TAB PO ONE (09:58)
[2021-03-05 10:52] VITALS: BP 132/76; PULSE 76
== END 2021-03-05 10:53 | disposition home or self-care (01) ==
LOC: OR 06:53
PROVIDERS: ATTEND Obstetrics & Gynecology
DX: Z30.2 Encounter for sterilization (principal); D28.0 Benign neoplasm of vulva; Z86.14 Personal history of Methicillin resistant Staphylococcus aureus infection; Z90.89 Acquired absence of other organs; F41.9 Anxiety disorder, unspecified; F32.9 Major depressive disorder, single episode, unspecified; Z79.899 Other long term (current) drug therapy
CPT/HCPCS: 81025; 88305; 58670; 11422; J2250; J1100; J2405; J2001; J3010; J0131; J1885; J0330; J2704